=== PATIENT | male | born 1930 | race Caucasian/White ===

== ENCOUNTER 2018-01-18 05:02 | Inpatient (IN) | payer MEDICARE, OTHER ==
[~2018-01-18] VITALS: Ht 170.2 cm; Wt 77.1 kg
[2018-01-18] VITALS (14 sets, daily range): BP systolic 96–173; BP diastolic 49–99
[2018-01-18] MEDS ORDERED: Fleet's Enema 133ml RECTAL ONE (05:15)
--- NOTE | 2018-01-18 05:22 | Emergency Room Report ---
History of Present Illness General Chief Complaint: Constipation Source: Patient, EMS Present Illness HPI Is an 87-year-old male with a history of CAD with CABG. He presents with chief complaint of dizziness and syncope. Onset tonight. [place] lightheaded. Became diaphoretic and had a presyncopal episode. His other main complaint is constipation. He had no significant bowel movement for a week now. He said he tried a glycerin suppository and only had small pellet. Denies any trauma.. Similar symptom in the past. [place] crampy abdominal pain. No bleeding. No nausea no vomiting. No diarrhea. He also complaining of a large prostate which she has to catheterize in order to urinate. Allergies: Coded Allergies: No Known Allergies (Unverified , 01/18/18) Patient History Past Medical History: see triage record, old chart reviewed, HTN, MA, CAD Past Surgical History: CABG Pertinent Family History: other Social History: Denies: smoking Immunizations: other Reviewed Nursing Documentation: PMH: Agreed; PSxH: Agreed Nursing Documentation-PMH Past Medical History: No History, Except For Hx Hypertension: Yes Hx Diabetes: Yes History Of Psychiatric Problem: Yes Review of Systems Constitutional: Reports: weakness Eye: Denies: eye pain, blurred vision ENT: Denies: ear pain, nose congestion, throat swelling Respiratory: Denies: cough, shortness of breath Cardiovascular: Denies: chest pain, palpitations Gastrointestinal: Reports: abdominal pain; Denies: diarrhea, nausea, vomiting Musculoskeletal: Denies: back pain, joint pain Skin: Denies: rash Neurological: Denies: headache, numbness Endocrine: Denies: increased thirst, increased urine Hematologic/Lymphatic: Denies: easy bruising All Other Systems: negative except mentioned in HPI Physical Exam Vital Signs Date Time Temp Pulse Resp B/P (MAP) Pulse Ox O2 Delivery O2 Flow Rate FiO2 01/18/18 05:01 98.7 62 18 156/67 97 Room Air 98.8 vitals with high blood pressure Sp02 EP Interpretation: reviewed, normal General Appearance: no apparent distress, alert, Chronically Ill Head: normocephalic, atraumatic Eyes: bilateral eye PERRL, bilateral eye EOMI, bilateral eye other - pale conjunctiva ENT: hearing grossly normal, normal pharynx Neck: full range of motion, supple, no meningismus Respiratory: chest non-tender, lungs clear, normal breath sounds Cardiovascular #1: regular rate, rhythm, no murmur Gastrointestinal: normal bowel sounds, non tender, no mass, no organomegaly, no bruit, non-distended, other - reducible umbilical hernia Rectal: normal rectal tone, prostate non-tender - enlarged, other - small hard stools Musculoskeletal: back normal, normal range of motion Neurologic: alert, oriented x3 Psychiatric: mood/affect normal Skin: warm/dry Procedures Critical Care Time Critical Care Time Critical care is mandated in this patient who presented with complete heart block. Patient require my urgent intervention to attenuate the risks of metabolic collapse which may lead to cardiovascular collapse and . Critical care time is 35 minutes excluding any reportable procedure. Critical care time included evaluation, multiple reevaluation, looking at old charts, interpreting laboratory and diagnostic data, discussing case with patient and family and consultants, and charting. Medical Decision Making Diagnostic Impression: Primary Impression: Complete heart block Additional Impressions: Syncope Qualified Codes: R55 - Syncope and collapse Constipation Qualified Codes: K59.00 - Constipation, unspecified ER Course Patient presents with syncope and constipation. Initially on my exam heart rate was in the 60s. After rectal exam and enema, it drops in the 20s. Patient felt weak and dizzy but blood pressure is stable. After 2 doses of atropine (total 1 mg), heart rate increase to 83 and blood pressure improved to systolic 160. Patient has more color to his skin. Temporary cutaneous pacemaker attached to patient in case he needed it. His laundry marker supervisor is Dr. Reg Trujillo at [facility]. His asked me to call him for potential transfer. I paged the doctor. No answer from Dr. Trujillo answering service. I discussed case with Dr. Dickey who will admit pt to ICU. He asked Dr. Magdaleno, laundry marker supervisor, to be contacted. I discussed case with Dr. Magdaleno. Lab Results Impression Labs unremarkable. EKG Diagnostic Results Rate: bradycardiac Rhythm: other - sinus bradycardia ST Segments: other - NSST changes Rhythm Strip Diag. Results Rhythm Strip Time: 06:04 EP Interpretation: yes Rate: 82 Rhythm: NSR, no PVC's, no ectopy Chest X-Ray Diagnostic Results Chest X-Ray Diagnostic Results : Chest X-Ray Ordered: Yes # of Views/Limited/Complete: 1 View Indication: Chest Pain EP Interpretation: Yes Interpretation: no consolidation, no effusion, no pneumothorax, other - CM Impression: Other - CM Last Vital Signs Date Time Temp Pulse Resp B/P (MAP) Pulse Ox O2 Delivery O2 Flow Rate FiO2 01/18/18 05:01 98.7 62 18 156/67 97 Room Air 98.8 Status: improved Disposition: ADMITTED INPATIENT Condition: Critical TALON HERNANDEZ M.D. Jan 18, 2018 05:22
[2018-01-18] MEDS ORDERED: Atropine Inj 1mg/10ml Syr IVP ONE ×2 (05:45→06:00)
[2018-01-18 05:51] LABS: BASOPHILS % (AUTO) 1.4 % (0.0-2.0); EOSINOPHILS % (AUTO) 6.6 % (0.0-3.0); HEMATOCRIT 37.4 % (42.0-52.0); HEMOGLOBIN 12.6 G/DL (14.2-18.0); LYMPHOCYTES % (AUTO) 17.8 % (20.0-45.0); MEAN CORPUSCULAR VOLUME 88 FL (80-99); MONOCYTES % (AUTO) 13.7 % (1.0-10.0); NEUTROPHILS % (AUTO) 60.5 % (45.0-75.0); PLATELET COUNT 127 K/UL (150-450); RED BLOOD COUNT 4.26 M/UL (4.70-6.10); RED CELL DISTRIBUTION WIDTH 12.2 % (11.6-14.8); WHITE BLOOD COUNT 7.1 K/UL (4.8-10.8)
[2018-01-18] MEDS ORDERED: Atropine Inj 1mg/10ml Syr ONE (05:55)
[2018-01-18 06:06] LABS: ALANINE AMINOTRANSFERASE 21 U/L (12-78); ALBUMIN 3.5 G/DL (3.4-5.0); ALBUMIN/GLOBULIN RATIO 0.9 (1.0-2.7); ALKALINE PHOSPHATASE 43 U/L (46-116); ANION GAP 12 mmol/L (5-15); ASPARTATE AMINO TRANSFERASE 22 U/L (15-37); BILIRUBIN,TOTAL 0.9 MG/DL (0.2-1.0); CARBON DIOXIDE 22 MMOL/L (21-32); CHLORIDE 104 MMOL/L (98-107); CKMB 1.4 NG/ML (0.0-3.6); CREATINE KINASE 93 U/L (26-308); CREATININE 1.4 MG/DL (0.55-1.30); POTASSIUM 4.3 MMOL/L (3.5-5.1); SODIUM 138 MMOL/L (136-145)
[2018-01-18 06:20] LABS: BLOOD UREA NITROGEN 28 mg/dL (7-18)
[2018-01-18] MEDS ORDERED: Aspirin Baby 81mg ONE (06:20)
[2018-01-18] MEDS ORDERED: PRAVASTATIN SOD20 M1 ORAL (06:27)
[2018-01-18] MEDS ORDERED: ELIQUIS2.5 MG PO ×2 (06:27→08:19)
[2018-01-18] MEDS ORDERED: ASPIR 8181 MG ORAL (06:27)
[2018-01-18] MEDS ORDERED: LOSARTAN POTASS25 MG ORAL (06:27)
[2018-01-18] MEDS ORDERED: CARVEDILOL3.125 MG ORAL (06:30)
[2018-01-18] MEDS ORDERED: Aspirin Baby 81mg ORAL ONE (06:30)
[2018-01-18] MEDS ORDERED: ISOSORBIDE MONO10 MG PO (06:30)
[2018-01-18] MEDS ORDERED: Morphine Sulfate 2mg/ml Inj IVP PRN ×2 (06:45→15:45)
[2018-01-18] MEDS ORDERED: LORazepam Inj 2mg/ml 1ml IV PRN (06:45)
[2018-01-18] MEDS ORDERED: DOPamine 400mg/250ml 250 ML IV SCH (07:00)
[2018-01-18] MEDS ORDERED: D5 1/2NS 1,000 ML IV SCH ×2 (07:00→12:00)
[2018-01-18 07:18] LABS: BILIRUBIN, URINE NEGATIVE (NEGATIVE); COLOR,URINE PALE YELLOW; GLUCOSE, URINE (UA) NEGATIVE (NEGATIVE); KETONES,URINE NEGATIVE (NEGATIVE); LEUKOCYTE ESTERASE ,URINE 1+ (NEGATIVE); NITRITE,URINE NEGATIVE (NEGATIVE); PH,URINE 7 (4.5-8.0); PROTEIN,URINE 2+ (NEGATIVE); UROBILINOGEN,URINE NORMAL MG/DL (0.0-1.0)
[2018-01-18 07:25] LABS: APPEARANCE,URINE SLIGHTLY CLOUDY
[2018-01-18] MEDS ORDERED: ISOSORBIDE MONO20 MG PO (08:19)
[2018-01-18] MEDS ORDERED: PRAVACHOL40 MG ORAL (08:19)
[2018-01-18] MEDS ORDERED: LOSARTAN POTAS100 MG ORAL (08:19)
[2018-01-18] MEDS ORDERED: COREG12.5 MG ORAL (08:19)
[2018-01-18] MEDS ORDERED: Heparin 5000 units/ml inj SUBQ SCH (09:00)
--- NOTE | 2018-01-18 09:33 | Pulmonolgy Critical Care Note ---
Critical Care - Asmt/Plan Problems: (1) Complete heart block (2) Constipation (3) CAD (coronary artery disease) (4) Diabetes mellitus (5) Hypertension Respiratory: monitor respiratory rate, adjust FIO2 Cardiac: continue to monitor HR/BP Renal: F/U I&O Gastrointestinal: continue feedings/current rate Endocrine: monitor blood sugar, continue sliding scale insulin Hematologic: monitor H/H Neurologic: PRN Ativan Affect: PRN ativan Time Spent (Minutes): 40 Notes Reviewed: front of house manager, cardio Discussed with: nurses, consultants, classification case managercage shift manager - Objective Last 24 Hour Vital Signs Date Time Temp Pulse Resp B/P (MAP) Pulse Ox O2 Delivery O2 Flow Rate FiO2 01/18/18 07:34 98.8 72 18 173/62 96 Room Air 98.8 01/18/18 05:59 85 162/76 100 Room Air 01/18/18 05:01 98.7 62 18 156/67 97 Room Air 98.8 Status: awake Condition: critical HEENT: atraumatic Lungs: clear Heart: HR/BP unstable, irregular Abdomen: soft, non-tender Extremities: no C/C/E Decubiti: location Critical Care - Subjective Condition: critical EKG Rhythm: 3rd Degree HB I&O: Intake and Output 01/17/18 01/18/18 19:00 07:00 Output Total 200 ml Balance -200 ml Output Urine Total 200 ml Labs: Laboratory Tests Test 01/18/18 05:20 01/18/18 06:14 White Blood Count 7.1 K/UL (4.8-10.8) Red Blood Count 4.26 M/UL (4.70-6.10) L Hemoglobin 12.6 G/DL (14.2-18.0) L Hematocrit 37.4 % (42.0-52.0) L Mean Corpuscular Volume 88 FL (80-99) Mean Corpuscular Hemoglobin 29.5 PG (27.0-31.0) Mean Corpuscular Hemoglobin Concent 33.7 G/DL (32.0-36.0) Red Cell Distribution Width 12.2 % (11.6-14.8) Platelet Count 127 K/UL (150-450) L Mean Platelet Volume 10.0 FL (6.5-10.1) Neutrophils (%) (Auto) 60.5 % (45.0-75.0) Lymphocytes (%) (Auto) 17.8 % (20.0-45.0) L Monocytes (%) (Auto) 13.7 % (1.0-10.0) H Eosinophils (%) (Auto) 6.6 % (0.0-3.0) H Basophils (%) (Auto) 1.4 % (0.0-2.0) Sodium Level 138 MMOL/L (136-145) Potassium Level 4.3 MMOL/L (3.5-5.1) Chloride Level 104 MMOL/L (98-107) Carbon Dioxide Level 22 MMOL/L (21-32) Anion Gap 12 mmol/L (5-15) Blood Urea Nitrogen 28 mg/dL (7-18) H Creatinine 1.4 MG/DL (0.55-1.30) H Estimat Glomerular Filtration Rate mL/min (>60) Glucose Level 132 MG/DL (74-106) H Calcium Level 9.0 MG/DL (8.5-10.1) Total Bilirubin 0.9 MG/DL (0.2-1.0) Aspartate Amino Transf (AST/SGOT) 22 U/L (15-37) Alanine Aminotransferase (ALT/SGPT) 21 U/L (12-78) Alkaline Phosphatase 43 U/L (46-116) L Total Creatine Kinase 93 U/L (26-308) Creatine Kinase MB 1.4 NG/ML (0.0-3.6) Creatine Kinase MB Relative Index 1.5 Troponin I 0.027 ng/mL (0.000-0.056) Total Protein 7.5 G/DL (6.4-8.2) Albumin 3.5 G/DL (3.4-5.0) Globulin 4.0 g/dL Albumin/Globulin Ratio 0.9 (1.0-2.7) L Urine Color Pale yellow Urine Appearance Slightly cloudy Urine pH 7 (4.5-8.0) Urine Specific [place] 1.005 (1.005-1.035) Urine Protein 2+ (NEGATIVE) H Urine Glucose (UA) Negative (NEGATIVE) Urine Ketones Negative (NEGATIVE) Urine Blood Negative (NEGATIVE) Urine Nitrite Negative (NEGATIVE) Urine Bilirubin Negative (NEGATIVE) Urine Urobilinogen Normal MG/DL (0.0-1.0) Urine Leukocyte Esterase 1+ (NEGATIVE) H Urine RBC 0-2 /HPF (0 - 0) H Urine WBC 5-10 /HPF (0 - 0) H Urine Squamous Epithelial Cells Few /LPF (NONE/OCC) Urine Bacteria Few /HPF (NONE) Urine Hyaline Casts 0-2 /LPF (NONE) H Sami Avila MD Jan 18, 2018 09:33
--- NOTE | 2018-01-18 11:26 | Pre-Procedure Note/Attestation ---
Pre-Procedure Note/Attestation Complete Prior to Procedure Planned Procedure: left Procedure Narrative: permanent dual chamber pacemaker Indications for Procedure Pre-Operative Diagnosis: intermittent complete av block Attestation I attest that I discussed the nature of the procedure; its benefits; risks and complications; and alternatives (and the risks and benefits of such alternatives ), prior to the procedure, with the patient (or the patient's legal customer development representative). I attest that, if there was a reasonable possibility of needing a blood transfusion, the patient (or the patient's legal customer development representative) was given the [facility] standardized written summary, pursuant to the Dany Naveen Blood Safety Act ([place] Health and Safety Code # 1645, as amended). I attest that I re-evaluated the patient just prior to the surgery and that there has been no change in the patient's H&P, except as documented below: none Maira Aguero MD Jan 18, 2018 11:26
[2018-01-18] MEDS ORDERED: LR 1000ml 1,000 ML IVLG SCH (11:31)
--- NOTE | 2018-01-18 11:31 | Anethesia Preoperative Eval ---
Anesthesia Pre-op PMH/ROS General Date of Evaluation: Jan 18, 2018 Anesthesiologist: Henri ASA Score: ASA 4 - E Mallampati Score Class I : Soft palate, uvula, fauces, pillars visible Class II: Soft palate, uvula, fauces visible Class III: Soft palate, base of uvula visible Class IV: Only hard plate visible Mallampati Classification: Class II Surgeon: Judit Diagnosis: Complete heart block Surgical Procedure: Pacemaker placement Anesthesia History: none Family History: no anesthesia problems Allergies: Coded Allergies: No Known Allergies (Unverified , 01/18/18) Medications: see eMAR Past Medical History Cardiovascular: Reports: HTN, CAD, [place]; Denies: valve dz, arrhythmia, other Pulmonary: Denies: asthma, COPD, KAT, other Gastrointestinal/Genitourinary: Denies: GERD, CRI, ESRD, other Neurologic/Psychiatric: Denies: dementia, CVA, depression/anxiety, TIA, other Endocrine: Reports: DM; Denies: hypothyroidism, steroids, other HEENT: Denies: cataract (L), cataract (R), glaucoma, [place] (L), [place] (R), other Hematology/Immune: Denies: anemia, DVT, bleeding disorder, other Musculoskeletal/Integumentary: Denies: OA, RA, DJD, DDD, edema, other PSxH Narrative: CABG Anesthesia Pre-op Phys. Exam Physician Exam Last Vital Signs Date Time Temp Pulse Resp B/P (MAP) Pulse Ox O2 Delivery O2 Flow Rate FiO2 01/18/18 11:00 Nasal Cannula 2.0 01/18/18 10:26 97.6 61 19 163/62 100 97.6 Constitutional: NAD Cardiovascular: RRR Respiratory: CTA Airway Exam Mallampati Score: Class II MO: limited ROM: limited Anesthesia Pre-op A/P Labs Hematology Test 01/18/18 05:20 White Blood Count 7.1 K/UL (4.8-10.8) Red Blood Count 4.26 M/UL (4.70-6.10) L Hemoglobin 12.6 G/DL (14.2-18.0) L Hematocrit 37.4 % (42.0-52.0) L Mean Corpuscular Volume 88 FL (80-99) Mean Corpuscular Hemoglobin 29.5 PG (27.0-31.0) Mean Corpuscular Hemoglobin Concent 33.7 G/DL (32.0-36.0) Red Cell Distribution Width 12.2 % (11.6-14.8) Platelet Count 127 K/UL (150-450) L Mean Platelet Volume 10.0 FL (6.5-10.1) Neutrophils (%) (Auto) 60.5 % (45.0-75.0) Lymphocytes (%) (Auto) 17.8 % (20.0-45.0) L Monocytes (%) (Auto) 13.7 % (1.0-10.0) H Eosinophils (%) (Auto) 6.6 % (0.0-3.0) H Basophils (%) (Auto) 1.4 % (0.0-2.0) Chemistry Test 01/18/18 05:20 Sodium Level 138 MMOL/L (136-145) Potassium Level 4.3 MMOL/L (3.5-5.1) Chloride Level 104 MMOL/L (98-107) Carbon Dioxide Level 22 MMOL/L (21-32) Anion Gap 12 mmol/L (5-15) Blood Urea Nitrogen 28 mg/dL (7-18) H Creatinine 1.4 MG/DL (0.55-1.30) H Estimat Glomerular Filtration Rate mL/min (>60) Glucose Level 132 MG/DL (74-106) H Calcium Level 9.0 MG/DL (8.5-10.1) Total Bilirubin 0.9 MG/DL (0.2-1.0) Aspartate Amino Transf (AST/SGOT) 22 U/L (15-37) Alanine Aminotransferase (ALT/SGPT) 21 U/L (12-78) Alkaline Phosphatase 43 U/L (46-116) L Total Creatine Kinase 93 U/L (26-308) Creatine Kinase MB 1.4 NG/ML (0.0-3.6) Creatine Kinase MB Relative Index 1.5 Troponin I 0.027 ng/mL (0.000-0.056) Total Protein 7.5 G/DL (6.4-8.2) Albumin 3.5 G/DL (3.4-5.0) Globulin 4.0 g/dL Albumin/Globulin Ratio 0.9 (1.0-2.7) L Studies Pre-op Studies: EKG - complete heart block Risk Assessment & Plan Assessment: ASA DANIELLA Plan: MAC Status Change Before Surgery: No Pre-Antibiotics Drug: Ancef 1g Given Within 1 Hr of Incision: Yes Evelia Lanier MD Jan 18, 2018 11:31
[2018-01-18] MEDS ORDERED: Bupivacaine 0.5% Inj 30 ml vial INJ ONE (11:33)
[2018-01-18] MEDS ORDERED: Bacitracin 50000 Units Vial ONE (11:33)
[2018-01-18] MEDS ORDERED: Lidocaine 1% Plain 30 ml INJ ONE (11:33)
--- NOTE | 2018-01-18 11:36 | Consultation ---
Consult Note Consult Note Cardiac EP full consult dictated #[id number] Maira Aguero MD Jan 18, 2018 11:36
[2018-01-18] MEDS ORDERED: Propofol 200mg/20ml IV ONE (11:40)
[2018-01-18] MEDS ORDERED: fentaNYL 100 mcg/2 mL IV ONE (11:40)
[2018-01-18] MEDS ORDERED: Lidocaine 1% MPF 10mg/ml 5ml ONE (11:40)
[2018-01-18] MEDS ORDERED: DiphenhydrAMINE 50mg/ml Inj IVP PRN (11:45)
[2018-01-18] MEDS ORDERED: Labetalol 5mg/ml 20ml vial IV PRN (11:45)
[2018-01-18] MEDS ORDERED: fentaNYL 100 mcg/2 mL IV PRN (11:45)
[2018-01-18] MEDS ORDERED: NS Irrig 1000ml ONE (12:00)
[2018-01-18] MEDS ORDERED: ceFAZolin sod 2 GM in D5W 110 ML IVPB SCH (12:00)
[2018-01-18] MEDS ORDERED: LR 1000ml ONE (12:00)
[2018-01-18] MEDS ORDERED: Sterile Water Irrig 1000ml IRRIG ONE (12:00)
--- NOTE | 2018-01-18 12:04 | Diagnostic Imaging Report ---
Indication: Syncope Technique: One view of the chest Comparison: 05/16/2010 Findings: The heart is mildly enlarged. There are overlying defibrillator paddles. There is mild pulmonary venous congestion. No definite effusions. There is evidence of prior CABG Impression: Mild cardiomegaly and borderline pulmonary venous congestion
[2018-01-18 12:05] LABS: INR 1.1 (0.9-1.1)
[2018-01-18] MEDS ORDERED: Thrombin 5000 units spray kit TOPIC ONE (13:28)
--- NOTE | 2018-01-18 13:56 | Pre-Procedure Note/Attestation ---
Pre-Procedure Note/Attestation Complete Prior to Procedure Planned Procedure: left Procedure Narrative: pacemaker implant Indications for Procedure Pre-Operative Diagnosis: intermittent complete av block Attestation I attest that I discussed the nature of the procedure; its benefits; risks and complications; and alternatives (and the risks and benefits of such alternatives ), prior to the procedure, with the patient (or the patient's legal solar sales representative and assessor). I attest that, if there was a reasonable possibility of needing a blood transfusion, the patient (or the patient's legal solar sales representative and assessor) was given the [facility] standardized written summary, pursuant to the Dany Naveen Blood Safety Act ([place] Health and Safety Code # 1645, as amended). I attest that I re-evaluated the patient just prior to the surgery and that there has been no change in the patient's H&P, except as documented below: Maira Aguero MD Jan 18, 2018 13:56
[2018-01-18] MEDS ORDERED: ceFAZolin 1gm/50ml Premix 50 ML IV ONE (14:00)
--- NOTE | 2018-01-18 14:02 | Operative Note - PDOC ---
Operative Note Operative Note Pre-op Diagnosis: intermittent complete av block Procedure: permanent pacemaker implant Post-op Diagnosis: intermittent complete av block Post-op Diagnosis: same as pre-op Surgeon: Reynaldo Aguero Apartment Leasing Specialist: none Additional Surgeons: none Anesthesiologist: Henri Anesthesia: local, MAC Specimen: none Complications: none Condition: stable Estimated Blood Loss: minimal Drains: none Implant(s) used?: Yes Indications for Procedure intermittent chb Description of Procedure # [id number] dictation Maira Aguero MD Jan 18, 2018 14:02
--- NOTE | 2018-01-18 15:30 | Consultation ---
DATE OF CONSULTATION: 01/18/2018 CARDIAC ELECTROPHYSIOLOGY CONSULT CONSULTING PHYSICIAN: Maira Aguero M.D. REASON FOR CONSULT: Syncope. HISTORY OF PRESENT ILLNESS: The patient is an 87-year-old man with a history of coronary artery disease, previous coronary artery bypass graft surgery, four-vessel in 1978 and 1993, previous PCI procedures most recently in 2016, and history of catheter ablation (records not available) in 2016, and history of hypertension. He has had intermittent episodes of dizziness and syncope over the past few months. This morning at about 3 a.m., he awoke with dizziness and diaphoresis. He had no chest pain or dyspnea. The symptoms persisted. He attempted to stand and walk, but had loss of balance, dizziness, and presyncope as well as nausea. The paramedics were called and he was transferred to [facility] emergency room. There, he was noted to have a heart rate in the 30s, complete heart block, blood pressure was reported at 150/60 and he was transferred to [facility] emergency room. There, he was initially in sinus rhythm with rates in the 60s. However while hospitalized, in the emergency room, his heart rate dropped to the 20s, complete heart block. He had weakness and dizziness. Blood pressure was reported to be stable. He received two doses of 1 mg each of atropine. Heart rate increased to 83. Blood pressure increased to 160 systolic. The temporary transcutaneous pacemaker was placed and he was admitted to the intensive care unit for further management. His initial troponin was 0.027, potassium 4.3. MEDICATIONS: At home, Eliquis 2.5 mg twice daily, aspirin 81 mg daily, Coreg 12.5 mg every 12 hours, Imdur mg daily, losartan 100 mg daily, and Pravachol 40 mg daily. ALLERGIES: No known drug allergies. PAST MEDICAL HISTORY: As noted above. SOCIAL HISTORY: The patient has no history of tobacco or alcohol use. PHYSICAL EXAMINATION: VITAL SIGNS: Blood pressure is 163/62, pulse 61, regular, respirations 20, and afebrile. GENERAL: An alert, elderly appearing white male, in no acute distress. HEENT: Normocephalic and atraumatic. Pupils are equal, round, and reactive to light. Sclerae anicteric. Oral mucosa are moist. NECK: Supple. There is no jugular venous distention. Carotid pulses are 2+ bilaterally without bruits. LUNGS: Clear to auscultation bilaterally. HEART: Regular, S1 and S2 with no murmurs, rubs, or S3. ABDOMEN: Soft, nontender. No palpable mass. Small reducible umbilical hernia. NEUROLOGIC: Alert and oriented x3. No focal motor deficits. SKIN: Warm, dry. No rashes or lesions. LABORATORY AND DIAGNOSTIC DATA: Sodium 138, potassium 4.3, chloride 104, bicarbonate 22, BUN 28, creatinine 1.4, and glucose 132. Troponin 0.027. Hemoglobin 12.6, hematocrit 37, white blood count 7100, and platelets 127,000. Urinalysis, 2+ protein, 1+ leukocyte esterase, 5 to 10 white blood cells, 0 to 2 red blood cells. EKG on admission showed sinus rhythm at a rate of 60 beats per minute with complete AV block, right bundle-branch block. Repeat EKG after atropine shows sinus rhythm, 84 beats per minute, first-degree AV block, and left bundle-branch block and right axis deviation. ASSESSMENT AND RECOMMENDATIONS: The patient is an 87-year-old man with a history of coronary artery disease, previous coronary artery bypass graft surgery, PCI procedures, previous ablation (question for atrial tachyarrhythmia) in 2016, history of thrombocytopenia, and episodes of dizziness, syncope, and presyncope, who was admitted with an episode of dizziness, nausea, and near syncope. In the emergency room, he was initially in sinus rhythm, but developed complete AV block with a heart rate of 24 beats per minute, which has resolved following atropine. He appears to have bilateral infranodal conduction disease with alternating right bundle and left bundle branch blocks noted on EKGs. However, he also appears with AV agueda conduction disease as his rhythm responded to atropine. I would agree with the recommendation for permanent pacemaker placement for treatment of symptomatic high-grade AV block. The procedure was discussed with him and his family. Risks and benefits were discussed. He understands and agrees to proceed. His anticoagulants will be held for the procedure, type and screen will be done and he will receive preoperative intravenous antibiotics. The patient's case was discussed with his primary automatic riveting machine operator , who agrees with the recommendation for permanent pacemaker placement. Maira Aguero M.D. DR: RENETTA JOB#: [id number] CC:
[2018-01-18] MEDS: Docusate 100mg cap ORAL SCH ×2 (15:34→17:41)
[2018-01-18] MEDS: Lactulose 20gm/30ml UDC ORAL SCH ×2 (15:34→17:42)
[2018-01-18] MEDS ORDERED: Acetaminophen 500mg (ES) tab ORAL PRN (16:00)
[2018-01-18] MEDS ORDERED: Tylenol #3 tab (300mg/30mg) ORAL PRN (16:00)
--- NOTE | 2018-01-18 16:35 | Cardiology Progress Note ---
Assessment/Plan Assessment/Plan heart block now s/p ppi intermittent rbbb and lbbb paf on nticoagualtion with eliquis atrial flutter s/p ablation hsi of icmseem to hve resolved most recetn mpi ef 50-55% cri ITP cad s/p cabg and pci lat 2016 now s/p ppi hold eliquis not in afib now observe ove rthe next 24-48 hour helplock ivf resume diet observe in icu for a few hours [id number] Objective Last 24 Hour Vital Signs Date Time Temp Pulse Resp B/P (MAP) Pulse Ox O2 Delivery O2 Flow Rate FiO2 01/18/18 15:20 57 01/18/18 15:00 61 18 148/49 (82) 97 01/18/18 14:00 97.8 61 16 139/69 (92) 98 97.8 01/18/18 12:00 Nasal Cannula 2.0 01/18/18 12:00 97.8 60 16 153/99 (117) 100 97.8 01/18/18 11:00 Nasal Cannula 2.0 01/18/18 11:00 153/99 01/18/18 10:26 97.6 61 19 163/62 100 Nasal Cannula 2.0 97.6 01/18/18 09:53 97.6 61 19 163/62 100 Nasal Cannula 2.0 97.6 01/18/18 07:34 98.8 72 18 173/62 96 Room Air 98.8 01/18/18 05:59 85 162/76 100 Room Air 01/18/18 05:01 98.7 62 18 156/67 97 Room Air 98.8 Intake and Output 01/17/18 01/18/18 19:00 07:00 Output Total 200 ml Balance -200 ml Output Urine Total 200 ml Laboratory Tests Test 01/18/18 05:20 01/18/18 06:14 01/18/18 11:40 White Blood Count 7.1 K/UL (4.8-10.8) Red Blood Count 4.26 M/UL (4.70-6.10) L Hemoglobin 12.6 G/DL (14.2-18.0) L Hematocrit 37.4 % (42.0-52.0) L Mean Corpuscular Volume 88 FL (80-99) Mean Corpuscular Hemoglobin 29.5 PG (27.0-31.0) Mean Corpuscular Hemoglobin Concent 33.7 G/DL (32.0-36.0) Red Cell Distribution Width 12.2 % (11.6-14.8) Platelet Count 127 K/UL (150-450) L Mean Platelet Volume 10.0 FL (6.5-10.1) Neutrophils (%) (Auto) 60.5 % (45.0-75.0) Lymphocytes (%) (Auto) 17.8 % (20.0-45.0) L Monocytes (%) (Auto) 13.7 % (1.0-10.0) H Eosinophils (%) (Auto) 6.6 % (0.0-3.0) H Basophils (%) (Auto) 1.4 % (0.0-2.0) Sodium Level 138 MMOL/L (136-145) Potassium Level 4.3 MMOL/L (3.5-5.1) Chloride Level 104 MMOL/L (98-107) Carbon Dioxide Level 22 MMOL/L (21-32) Anion Gap 12 mmol/L (5-15) Blood Urea Nitrogen 28 mg/dL (7-18) H Creatinine 1.4 MG/DL (0.55-1.30) H Estimat Glomerular Filtration Rate mL/min (>60) Glucose Level 132 MG/DL (74-106) H Calcium Level 9.0 MG/DL (8.5-10.1) Total Bilirubin 0.9 MG/DL (0.2-1.0) Aspartate Amino Transf (AST/SGOT) 22 U/L (15-37) Alanine Aminotransferase (ALT/SGPT) 21 U/L (12-78) Alkaline Phosphatase 43 U/L (46-116) L Total Creatine Kinase 93 U/L (26-308) Creatine Kinase MB 1.4 NG/ML (0.0-3.6) Creatine Kinase MB Relative Index 1.5 Troponin I 0.027 ng/mL (0.000-0.056) 0.050 ng/mL (0.000-0.056) Total Protein 7.5 G/DL (6.4-8.2) Albumin 3.5 G/DL (3.4-5.0) Globulin 4.0 g/dL Albumin/Globulin Ratio 0.9 (1.0-2.7) L Urine Color Pale yellow Urine Appearance Slightly cloudy Urine pH 7 (4.5-8.0) Urine Specific [place] 1.005 (1.005-1.035) Urine Protein 2+ (NEGATIVE) H Urine Glucose (UA) Negative (NEGATIVE) Urine Ketones Negative (NEGATIVE) Urine Blood Negative (NEGATIVE) Urine Nitrite Negative (NEGATIVE) Urine Bilirubin Negative (NEGATIVE) Urine Urobilinogen Normal MG/DL (0.0-1.0) Urine Leukocyte Esterase 1+ (NEGATIVE) H Urine RBC 0-2 /HPF (0 - 0) H Urine WBC 5-10 /HPF (0 - 0) H Urine Squamous Epithelial Cells Few /LPF (NONE/OCC) Urine Bacteria Few /HPF (NONE) Urine Hyaline Casts 0-2 /LPF (NONE) H Prothrombin Time 11.4 SEC (9.30-11.50) Prothromb Time International Ratio 1.1 (0.9-1.1) Activated Partial Thromboplast Time 33 SEC (23-33) Santiago Magdaleno MD Jan 18, 2018 16:35
[2018-01-18] MEDS ORDERED: ceFAZolin 1gm in D5W 55ml IVPB SCH (19:30)
--- NOTE | 2018-01-18 19:35 | History & Physical ---
History and Physical History & Physicial Dictated for Int Med-Dr Lim no. [id number]. ICU Domingo Reveles MD Jan 18, 2018 19:35
--- NOTE | 2018-01-18 20:15 | Operative Note - Dictated ---
DATE OF OPERATION: 01/18/2018 SURGEON: Maira Aguero M.D. PROCEDURE PERFORMED: Permanent dual-chamber pacemaker. INDICATION: Intermittent complete heart block. CLINICAL HISTORY: The patient is an 87-year-old man with a history of coronary artery disease, recurrent episodes of dizziness who presented with symptomatic intermittent complete heart block with ventricular rates in the 20s. The implanted device is a [employer], [place] MRI DR, serial number [id number] the implanted leads in the atrium is [employer] 7740, serial number [id number], and right ventricle was a [employer] 7741, serial number [id number]. Pacing and sensing thresholds in the right atrium, sensing is 2.6 millivolts, right ventricle 22.3 millivolts. Lead impedances are 562 ohms in the right atrium 815 ohms in the right ventricle pacing threshold 1.1 volts at 0.4 milliseconds. The right atrium 0.6 volts at 0.4 milliseconds in the right ventricle. ANESTHESIA: Local and intravenous sedation. DESCRIPTION OF PROCEDURE: The patient was brought to the operating room, received sedation as per the anesthesiologist, Dr. Álvarez. The left chest was sterilely prepped and draped in the usual manner. The skin and underlying soft tissues over the left deltopectoral groove were infiltrated with 1% Xylocaine local anesthetic. An incision of about 3 cm was made in the left deltopectoral groove and the incision was carried down to the prepectoral fascia using blunt and Bovie dissection. The left cephalic vein was isolated. A proximal loop and distal tie of silk suture were placed. The vein was then incised. Two guidewires advanced under fluoroscopy into the lower right atrium. Over one of the guidewires, a 6-Togolese safe sheath was advanced. The guidewire and dilator were removed and the ventricular lead was positioned in right ventricular apex under fluoroscopy. The screw was advanced under fluoroscopy. The above pacing and sensing thresholds were obtained. There was no diaphragmatic stimulation with pacing at 10 volts. The lead was secured with two nonabsorbable sutures via the suture sleeve. Next, the atrial lead was positioned in the right atrium septally. The screw was advanced under fluoroscopy and the above pacing and sensing thresholds were obtained. There was no diaphragmatic stimulation with pacing at 10 volts. The lead was secured with two nonabsorbable sutures via the suture sleeve. A subcutaneous pocket was created using blunt and Bovie dissection. The pocket was flushed with an antibiotic solution. The stylettes were removed from the leads after the leads had both been secured with two nonabsorbable sutures via the suture sleeve to the underlying fascia. The atrial and ventricular leads were attached to the generator. The setscrews were tightened and checked. The leads and generator were placed into the subcutaneous pocket with the excess lead coiled beneath the generator. The pocket was flushed with antibiotic solution. The generator was secured with an 0 silk suture to the underlying fascia. The incision was then closed with 2-0 and 4-0 Monocryl absorbable suture. A sterile dressing was applied. The patient tolerated the procedure well and there were no intraprocedural complications. Maira Aguero M.D. DR: Paula JOB#: [id number] CC:
[2018-01-18] MEDS ORDERED: Miralax 17gm pkt ORAL SCH (21:00)
--- NOTE | 2018-01-18 23:00 | History and Physical Report ---
DATE OF ADMISSION: 01/18/2018 CHIEF COMPLAINT: The patient is an 87-year-old white male who presents with complaint of syncopal episode. HISTORY OF PRESENT ILLNESS: The patient has a history of coronary artery disease. The patient has an approximate 5 year history of syncopal episode. The patient has been evaluated as an outpatient by Neurology, at [facility]. The patient states he went to bed this morning around 2 a.m. The patient then was trying to get out of bed. The patient states he fainted. The patient awoke and was confused with diaphoresis. The patient states he felt rushing noise in his head prior to passing out. The patient presented to [place] emergency room. The patient was found to have a complete AV block. The patient is admitted for complete AV block and syncopal episode. REVIEW OF SYSTEMS: CONSTITUTIONAL: The patient denies weight loss or weight gain. The patient denies fevers or chills. HEENT: The patient denies ear or throat pain. The patient denies headache. CARDIOVASCULAR: The patient has coronary artery disease as above. The patient denies palpitations or chest pain. CHEST: The patient denies wheezes or shortness of breath. ABDOMEN: The patient denies nausea, vomiting, diarrhea, or constipation. GENITOURINARY: The patient denies dysuria or increased frequency of urination. NEUROMUSCULAR: The patient complains of syncopal episode as above. The patient denies seizures. PAST MEDICAL HISTORY: Significant for: 1. Hypertension. 2. Coronary artery disease status post myocardial infarction x2. 3. Benign prostatic hypertrophy. PAST SURGICAL HISTORY: Significant for: 1. Coronary artery bypass graft x2, #1 in 1978 and second in 1993. 2. Coronary angioplasty twice with three stents placed, the first time two stents placed and second time, last percutaneous transluminal coronary angioplasty was in 2016. 3. Ablation in 2016. CURRENT MEDICATIONS: 1. Apixaban 2.5 mg p.o. twice daily. 2. Aspirin 81 mg p.o. daily. 3. Coreg 12.5 mg p.o. twice daily. 4. Isosorbide mononitrate 20 mg p.o. daily. 5. Losartan 100 mg p.o. daily. 6. Pravastatin 40 mg p.o. at bedtime. ALLERGIES: No known drug allergies. SOCIAL HISTORY: The patient is . The patient denies tobacco use, having quit in 1970. The patient admits to rare alcohol use. PHYSICAL EXAMINATION: VITAL SIGNS: Temperature 97.8, respirations 16, pulse 61, blood pressure 139/69. GENERAL: The patient is well-developed and well-nourished white male, in no apparent distress. HEENT: Eyes, pupils are equal and responsive to light and accommodation. Extraocular movements are intact. NECK: Supple without lymphadenopathy. CHEST: Lungs are clear to auscultation bilaterally without wheezes or rales. CARDIOVASCULAR: Regular rate. S1 and S2 are normal without murmurs, rubs, or gallops. ABDOMEN: Soft, nontender, and nondistended. Positive bowel sounds. No evidence of hepatosplenomegaly. Currently, no rebound or guarding noted. EXTREMITIES: Negative for clubbing, cyanosis, or edema. RECTAL/GENITAL: Refused. NEUROLOGIC: Cranial nerves II to XII are grossly intact without focal deficits. Motor strength is 5/5 bilaterally. Deep tendon reflexes are 2+ plantar. LABORATORY STUDIES: WBC 7.1, hemoglobin 12.6, hematocrit 37.4, platelets 127,000. Sodium 138, potassium 4.3, chloride 104, CO2 22, BUN 28, creatinine 1.4, glucose 132. Troponin elevated at 0.027. EKG demonstrated complete AV block at 85 beats per minute. ASSESSMENT: This is an 87-year-old white male. 1. Syncopal episode. 2. Complete AV block. 3. Coronary artery disease. 4. Hypertension. 5. Benign prostatic hypertrophy. 6. Hypercholesteremia. TREATMENT: 1. Syncopal episode/complete AV block. A Cardiology consultation has been obtained with Dr. Maira Aguero. The patient will require emergent pacemaker implantation for complete AV block. 2. Coronary artery disease. As above, a Cardiology consultation obtained with Dr. Donna. Aguero. 3. Hypertension. Continue Coreg and losartan as above. 4. Benign prostatic hypertrophy. 5. Hypercholesteremia. Continue pravastatin as above. Domingo Reveles M.D. DR: Noel JOB#: [id number] CC:
--- NOTE | 2018-01-18 23:00 | Consultation ---
DATE OF CONSULTATION: 01/18/2018 CARDIOLOGY CONSULTATION CONSULTING PHYSICIAN: Santiago Magdaleno M.D. REFERRING PHYSICIAN: Alex Dickey M.D. REASON FOR REFERRAL: Heart block. HISTORY OF PRESENT ILLNESS: This is an elderly gentleman, who presented to the hospital because of an episode of passing out. Apparently, he has been having several episodes of syncopal episodes for which workup has been initiated over the past few months by Dr. 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 Nevertheless, extensive workup has been performed. Apparently he did have tilt-table testing and either case in the middle of the night, he had those typical episodes, he woke up somewhat nauseated and felt as if he was going to pass out, apparently he passed out. When he woke up, he was drenched in perspiration he says and he has felt palpitations and the symptoms persisted, so eventually he had his call the paramedics. The paramedics brought him to the emergency room. Initially in the emergency room, he was noted to be in sinus rhythm and doing well. He went to the bathroom and he came back and apparently had an episode of a heart block. Actually, he was administered by the emergency room physician with resolution of the bradycardia and the patient was maintained. I was notified by the emergency room physician at that time and because of his history, I felt that he will likely require permanent pacemaker and arrangements made for Dr. Aguero to get involved for evaluation and placement of permanent pacemaker. This was subsequently accomplished later in the morning or early afternoon. He is now being seen in intensive care unit, feeling fine. He does not really have any chest pain, although he has had coronary artery disease and coronary bypass grafting on several occasions. He does have exertional angina and describes the pain when he does take out the garbage, but occurs apparently not frequently and certainly less frequently than it used to before. He has had two separate bypass surgeries in the 70s and again 90s and he underwent stent placement previously. PAST HISTORY: Notable for coronary artery disease, stented arteries, had elevation of PSA, cataracts status post right eye and cat bite, exertional angina, sepsis, paroxysmal episodes of atrial fibrillation, history of acute kidney disease, hyponatremia, congestive heart failure, chronic ITP and history of non-ST elevation myocardial infarction, acute on chronic heart failure, history of atrial fibrillation with rapid ventricular response and flutter as well as chronic kidney disease stage 3. He has had bypass surgeries on two separate occasions, stent placement and cataract surgery. ALLERGIES: He is not allergic to any medications. SOCIAL HISTORY: He does not smoke. He drinks only on rare occasions. He used to be in [employer]. He lives at home. REVIEW OF SYSTEMS: GASTROINTESTINAL: He did have some nausea earlier today. No vomiting and he is constipated. No black or bloody stools. GENITOURINARY: He self caths because of chronic intermittent obstructive uropathy. PULMONARY: Occasional cough. CONSTITUTIONAL: Negative. NEUROLOGICAL: Relatively benign. PHYSICAL EXAMINATION: GENERAL: Shows him to be an elderly gentleman, in no respiratory distress. VITAL SIGNS: Blood pressure is 148/49 with a heart rate of 61 and temperature 97 degrees. HEENT: Unremarkable. NECK: Supple. No jugular venous distention. LUNGS: Appear to be clear to auscultation and percussion. CARDIAC: S1 is normal. S2 is normal. Regular rate and rhythm. There is a holosystolic regurgitant murmur that is noted. ABDOMEN: Soft and nontender. Positive bowel sounds. Left chest wall dressing is in place. EXTREMITIES: No edema. He has pneumatic compression stockings in place. LABORATORY AND DIAGNOSTIC DATA: White count 7.1, hemoglobin 12.6, and platelet count of 127. Sodium is 138, potassium 4.3, chloride 104, bicarbonate 22, BUN 28, creatinine 1.4 and glucose of 132. His troponins are negative on two separate occasions and his coags, INR 1.1 and PTT of 33. Urinalysis is 5 to 10 wbc's and 0 to 2 rbc's and 1+ leukocyte esterase. X-rays performed included a chest x-ray that was performed in the emergency room, mildly enlarged cardiac silhouette, pulmonary vascular congestion. His electrocardiogram initially showed left bundle-branch conduction of ST-segment depression in II, III, and aVF and V5 and V6. Subsequently, he was in complete heart block with right bundle-branch conduction defect with secondary T-wave changes. This is documented on the EKG that was performed at 5:32 in the morning. His subsequent EKG at 6:03 in the morning shows recurrence of the left bundle again. ASSESSMENT AND PLAN: 1. 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 2. Intermittent right left bundle-branch conduction defect. 3. History of ischemic cardiomyopathy. 4. Chronic immune thrombocytopenic purpura or ITP. 5. Chronic congestive heart failure. 6. Chronic renal insufficiency. 7. Paroxysmal episodes of atrial fibrillation. 8. History of atrial flutter status post ablation. 9. Coronary artery disease, status post 2 separate bypass surgeries and stented arteries. Dr. Dickey, this patient was seen in cardiac consultation. The patient has had profound evidence of bradycardia with heart rate down to 24. Subsequently, reverted back to sinus with left bundle-branch conduction defect. As requested, Dr. Aguero has already seen the patient and a permanent pacemaker was implanted by her. The patient is doing relatively well. At this point, he should be observed in the intensive care unit for a few more hours to assure there was no bleeding. Anticoagulation with Eliquis will be withheld for the time being until the risks are better tolerated in terms of bleeding. He is not in atrial fibrillation at this time. Therefore, risk of thromboembolic disease may be lower. His IV fluids will be discontinued once he starts taking p.o. medications, his usual cardiac medication will be continued. He has had an ischemic cardiomyopathy previously, looks like the last myocardial perfusion imaging that was performed [facility] showed ejection fraction 51% to 55% with 3% reversible defect, small circumflex area territory. Therefore, it is unlikely that he would require intracardiac defibrillator. IV fluid will be discontinued. Echocardiogram will be ordered and the patient will be observed overnight, possibly at home in the next 24 to 48 hours. Santiago Magdaleno M.D. DR: DEMETRI JOB#: [id number] CC:
[2018-01-19] VITALS (7 sets, daily range): BP systolic 134–156; BP diastolic 51–73
[2018-01-19] MEDS ORDERED: LORazepam Inj 2mg/ml 1ml IV PRN (02:45)
[2018-01-19] MEDS ORDERED: Morphine Sulfate 2mg/ml Inj IVP PRN (03:45)
[2018-01-19] MEDS ORDERED: Tylenol #3 tab (300mg/30mg) ORAL PRN (04:00)
[2018-01-19] MEDS ORDERED: Acetaminophen 500mg (ES) tab ORAL PRN (04:00)
[2018-01-19 07:05] LABS: HEMATOCRIT 39.3 % (42.0-52.0); MEAN CORPUSCULAR VOLUME 89 FL (80-99); PLATELET COUNT 86 K/UL (150-450); RED CELL DISTRIBUTION WIDTH 12.7 % (11.6-14.8); WHITE BLOOD COUNT 9.4 K/UL (4.8-10.8)
[2018-01-19 08:09] LABS: ALANINE AMINOTRANSFERASE 21 U/L (12-78); ALBUMIN 3.6 G/DL (3.4-5.0); ALBUMIN/GLOBULIN RATIO 0.8 (1.0-2.7); ALKALINE PHOSPHATASE 47 U/L (46-116); ANION GAP 11 mmol/L (5-15); ASPARTATE AMINO TRANSFERASE 21 U/L (15-37); BILIRUBIN,TOTAL 1.2 MG/DL (0.2-1.0); BLOOD UREA NITROGEN 23 mg/dL (7-18); CALCIUM 8.8 MG/DL (8.5-10.1); CARBON DIOXIDE 25 MMOL/L (21-32); CHLORIDE 105 MMOL/L (98-107); CREATININE 1.4 MG/DL (0.55-1.30); SODIUM 141 MMOL/L (136-145)
[2018-01-19 08:11] LABS: BILIRUBIN,DIRECT 0.2 MG/DL (0.0-0.3)
--- NOTE | 2018-01-19 08:28 | Diagnostic Imaging Report ---
EXAM: XR Chest, 1 View CLINICAL HISTORY: DYSPNEA TECHNIQUE: Frontal view of the chest. COMPARISON: No relevant prior studies available. FINDINGS: Lungs: Subsegmental atelectasis in the left lung base. Mild pulmonary vascular congestion. Pleural space: Unremarkable. The costophrenic angles are sharp. No visible pneumothorax. Heart: Unremarkable. No cardiomegaly. Mediastinum: Unremarkable. Bones/joints: Status post median sternotomy. Intact appearance of sternal wires. Mild degenerative changes in the visualized spine. Vasculature: Atherosclerotic calcifications are noted within the aortic arch. Tubes, lines and devices: Cardiac pacer in the left chest wall with the lead tips in the right atrium and right ventricle regions. IMPRESSION: 1. Subsegmental atelectasis in the left lung base. 2. Mild pulmonary vascular congestion.
[2018-01-19] MEDS ORDERED: Sennosides 8.6mg ORAL SCH (09:00)
[2018-01-19] MEDS ORDERED: Aspirin EC 81mg tab ORAL SCH (09:00)
[2018-01-19] MEDS ORDERED: Carvedilol 12.5mg tab ORAL SCH (09:00)
[2018-01-19] MEDS ORDERED: Losartan 50mg tab ORAL SCH (09:00)
[2018-01-19] MEDS: Aspirin EC 81mg tab ORAL SCH (09:03)
[2018-01-19] MEDS: Lactulose 20gm/30ml UDC ORAL SCH ×4 (09:03→18:04)
[2018-01-19] MEDS: Docusate 100mg cap ORAL SCH ×4 (09:04→18:04)
[2018-01-19] MEDS: Carvedilol 12.5mg tab ORAL SCH ×2 (09:04→21:09)
[2018-01-19] MEDS: Losartan 50mg tab ORAL SCH (09:04)
[2018-01-19] MEDS: Sennosides 8.6mg ORAL SCH (09:04)
--- NOTE | 2018-01-19 10:21 | Pulmonology Progress Note ---
Assessment/Plan Problems: (1) Complete heart block (2) UTI (urinary tract infection) (3) Constipation (4) Hypertension (5) Diabetes mellitus Assessment/Plan s/p pacemaker iv fluids sliding scale start levofloxacin for UTI check electrolytes patient can go home when cleared by cardio Subjective ROS Limited/Unobtainable: No Constitutional: Reports: no symptoms Respiratory: Reports: no symptoms Allergies: Coded Allergies: No Known Allergies (Unverified , 01/18/18) Objective Last 24 Hour Vital Signs Date Time Temp Pulse Resp B/P (MAP) Pulse Ox O2 Delivery O2 Flow Rate FiO2 01/19/18 09:04 156/51 01/19/18 09:04 68 156/51 01/19/18 09:00 Room Air 01/19/18 08:15 68 156/51 (86) 01/19/18 04:00 64 01/19/18 02:00 64 20 150/58 (88) 97 01/19/18 01:00 63 22 151/52 (85) 97 01/19/18 00:00 97.0 62 16 152/51 (84) 97 97.0 01/19/18 00:00 61 01/19/18 00:00 Nasal Cannula 2.0 01/18/18 23:00 62 24 150/61 (90) 97 01/18/18 22:00 63 24 148/52 (84) 97 01/18/18 21:00 64 22 151/51 (84) 97 01/18/18 20:00 97.2 62 16 145/51 (82) 97 97.2 01/18/18 20:00 62 01/18/18 20:00 Nasal Cannula 2.0 01/18/18 19:00 62 22 150/51 (84) 96 01/18/18 18:00 61 22 159/62 (94) 97 01/18/18 17:00 97.6 61 16 148/57 (87) 99 97.6 01/18/18 16:00 61 01/18/18 16:00 Nasal Cannula 2.0 01/18/18 16:00 97.6 60 16 152/53 (86) 98 97.6 01/18/18 15:20 57 01/18/18 15:00 61 18 148/49 (82) 97 01/18/18 14:00 97.8 61 16 139/69 (92) 98 97.8 01/18/18 12:00 Nasal Cannula 2.0 01/18/18 12:00 97.8 60 16 153/99 (117) 100 97.8 01/18/18 11:00 Nasal Cannula 2.0 01/18/18 11:00 153/99 01/18/18 10:26 97.6 61 19 163/62 100 Nasal Cannula 2.0 97.6 Intake and Output 01/18/18 01/19/18 19:00 07:00 Intake Total 135 ml 175 ml Output Total 2220 ml 851 ml Balance -2085 ml -676 ml Intake Oral 120 ml IV Total 135 ml 55 ml Output Urine Total 2220 ml 850 ml Stool Total 1 ml # Bowel Movements 1 Objective General Appearance: WD/WN HEENT: normocephalic, anicteric Respiratory/Chest: chest wall non-tender, lungs clear, chest wall tender Cardiovascular: normal peripheral pulses Abdomen: normal bowel sounds, soft, non tender, no organomegaly Extremities: no cyanosis Skin: no rash 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 Complete Laboratory Tests 01/18/18 11:40: Prothrombin Time 11.4, Prothromb Time International Ratio 1.1, Activated Partial Thromboplast Time 33, Troponin I 0.050 01/19/18 06:00: Troponin I 0.073H, White Blood Count 9.4, Red Blood Count 4.40L, Hemoglobin 13.0L, Hematocrit 39.3L, Mean Corpuscular Volume 89, Mean Corpuscular Hemoglobin 29.6, Mean Corpuscular Hemoglobin Concent 33.2, Red Cell Distribution Width 12.7, Platelet Count 86L, Mean Platelet Volume 9.6, Neutrophils (%) (Auto) , Lymphocytes (%) (Auto) , Monocytes (%) (Auto) , Eosinophils (%) (Auto) , Basophils (%) (Auto) , Neutrophils % (Manual) [Pending] , Lymphocytes % (Manual) [Pending], Platelet Estimate [Pending], Platelet Morphology [Pending], Sodium Level 141, Potassium Level 4.0, Chloride Level 105 , Carbon Dioxide Level 25, Anion Gap 11, Blood Urea Nitrogen 23H, Creatinine 1.4H, Estimat Glomerular Filtration Rate , Glucose Level 101, Calcium Level 8.8 , Total Bilirubin 1.2H, Direct Bilirubin 0.2, Aspartate Amino Transf (AST/SGOT) 21, Alanine Aminotransferase (ALT/SGPT) 21, Alkaline Phosphatase 47, Pro-B-Type Natriuretic Peptide 1850H, Total Protein 8.0, Albumin 3.6, Globulin 4.4, Albumin /Globulin Ratio 0.8L Current Medications Medications (Trade) Dose Ordered Sig/Flash Route PRN Reason Start Time Stop Time Status Last Admin Dose Admin Acetaminophen (Tylenol) 500 mg Q4H PRN ORAL Mild Pain/Temp > 100.5 01/19/18 04:00 02/17/18 15:59 Acetaminophen/ Codeine Phosphate (Tylenol #3) 1 tab Q6H PRN ORAL Moderate Pain (Pain Scale 4-6) 01/19/18 04:00 01/25/18 15:59 Aspirin (Ecotrin) 81 mg DAILY ORAL 01/19/18 09:00 02/18/18 08:59 01/19/18 09:03 Carvedilol (Coreg) 12.5 mg EVERY 12 HOURS ORAL 01/19/18 09:00 02/18/18 08:59 01/19/18 09:04 Dextrose (Dextrose 50%) STAT PRN IV Hypoglycemia 01/19/18 06:45 02/17/18 06:44 Docusate Sodium (Colace) 100 mg THREE TIMES A DAY ORAL 01/19/18 09:00 02/17/18 12:59 01/19/18 09:04 Lactulose (Cephulac) 30 gm THREE TIMES A DAY ORAL 01/19/18 09:00 02/17/18 12:59 01/19/18 09:03 Lorazepam (Ativan 2mg/ml 1ml) 0.5 mg Q4H PRN IV For Anxiety 01/19/18 02:45 01/25/18 06:44 Losartan Potassium (Cozaar) 100 mg DAILY ORAL 01/19/18 09:00 02/18/18 08:59 01/19/18 09:04 Mineral Oil (Fleet's Mineral Oil Enema) 133 ml EVERY OTHER DAY RECTAL 01/20/18 09:00 02/19/18 08:59 Morphine Sulfate (Morphine Sulfate) 1 mg Q4H PRN IVP Severe Pain (Pain Scale 7-10) 01/19/18 03:45 01/25/18 06:44 Ondansetron HCl (Zofran) 4 mg Q6H PRN IVP Nausea & Vomiting 01/19/18 06:45 02/17/18 06:44 Polyethylene Glycol (Miralax) 17 gm BEDTIME ORAL 01/19/18 21:00 02/17/18 20:59 Pravastatin Sodium (Pravachol) 40 mg BEDTIME ORAL 01/19/18 21:00 02/17/18 20:59 Sennosides (Senokot) 1 tab DAILY ORAL 01/19/18 09:00 02/18/18 08:59 01/19/18 09:04 Sami Avila MD Jan 19, 2018 10:21
--- NOTE | 2018-01-19 12:48 | Cardiology Progress Note ---
Assessment/Plan Assessment/Plan 1. 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 2. Intermittent right left bundle-branch conduction defect. 3. History of ischemic cardiomyopathy. 4. Chronic immune thrombocytopenic purpura or ITP. 5. Chronic congestive heart failure. 6. Chronic renal insufficiency. 7. Paroxysmal episodes of atrial fibrillation. 8. History of atrial flutter status post ablation. 9. Coronary artery disease, status post 2 separate bypass surgeries and stented arteries lat in 2016. now s/p ppi hold eliquis not in afib now will resume in 2-3 days observe plt as dropped compared to yest helplock ivf dc nielsen allow self cath tele noted intermittent pacing need fu with ep next week once dcd he is aware Subjective Cardiovascular: Denies: chest pain, lightheadedness Respiratory: Denies: shortness of breath Gastrointestinal/Abdominal: Reports: constipated; Denies: abdominal pain Genitourinary: Denies: burning Subjective wants catheter to be removed Objective Last 24 Hour Vital Signs Date Time Temp Pulse Resp B/P (MAP) Pulse Ox O2 Delivery O2 Flow Rate FiO2 01/19/18 09:04 156/51 01/19/18 09:04 68 156/51 01/19/18 09:00 Room Air 01/19/18 08:15 68 156/51 (86) 01/19/18 08:00 80 01/19/18 04:00 64 01/19/18 02:00 64 20 150/58 (88) 97 01/19/18 01:00 63 22 151/52 (85) 97 01/19/18 00:00 97.0 62 16 152/51 (84) 97 97.0 01/19/18 00:00 61 01/19/18 00:00 Nasal Cannula 2.0 01/18/18 23:00 62 24 150/61 (90) 97 01/18/18 22:00 63 24 148/52 (84) 97 01/18/18 21:00 64 22 151/51 (84) 97 01/18/18 20:00 97.2 62 16 145/51 (82) 97 97.2 01/18/18 20:00 62 01/18/18 20:00 Nasal Cannula 2.0 01/18/18 19:00 62 22 150/51 (84) 96 01/18/18 18:00 61 22 159/62 (94) 97 01/18/18 17:00 97.6 61 16 148/57 (87) 99 97.6 01/18/18 16:00 61 01/18/18 16:00 Nasal Cannula 2.0 01/18/18 16:00 97.6 60 16 152/53 (86) 98 97.6 01/18/18 15:20 57 01/18/18 15:00 61 18 148/49 (82) 97 01/18/18 14:00 97.8 61 16 139/69 (92) 98 97.8 General Appearance: no apparent distress, alert Neck: supple Cardiovascular: normal rate, regular rhythm, other - pacer dressign is clear and dry no bleeding no induration Respiratory/Chest: lungs clear, normal breath sounds Abdomen: normal bowel sounds, non tender, soft Extremities: no swelling Intake and Output 01/18/18 01/19/18 19:00 07:00 Intake Total 135 ml 175 ml Output Total 2220 ml 851 ml Balance -2085 ml -676 ml Intake Oral 120 ml IV Total 135 ml 55 ml Output Urine Total 2220 ml 850 ml Stool Total 1 ml # Bowel Movements 1 Laboratory Tests Test 01/19/18 06:00 White Blood Count 9.4 K/UL (4.8-10.8) Red Blood Count 4.40 M/UL (4.70-6.10) L Hemoglobin 13.0 G/DL (14.2-18.0) L Hematocrit 39.3 % (42.0-52.0) L Mean Corpuscular Volume 89 FL (80-99) Mean Corpuscular Hemoglobin 29.6 PG (27.0-31.0) Mean Corpuscular Hemoglobin Concent 33.2 G/DL (32.0-36.0) Red Cell Distribution Width 12.7 % (11.6-14.8) Platelet Count 86 K/UL (150-450) L Mean Platelet Volume 9.6 FL (6.5-10.1) Neutrophils (%) (Auto) % (45.0-75.0) Lymphocytes (%) (Auto) % (20.0-45.0) Monocytes (%) (Auto) % (1.0-10.0) Eosinophils (%) (Auto) % (0.0-3.0) Basophils (%) (Auto) % (0.0-2.0) Differential Total Cells Counted 100 Neutrophils % (Manual) 70 % (45-75) Lymphocytes % (Manual) 8 % (20-45) L Monocytes % (Manual) 19 % (1-10) H Eosinophils % (Manual) 3 % (0-3) Basophils % (Manual) 0 % (0-2) Band Neutrophils 0 % (0-8) Platelet Estimate Decreased L Platelet Morphology Normal Red Blood Cell Morphology Normal Sodium Level 141 MMOL/L (136-145) Potassium Level 4.0 MMOL/L (3.5-5.1) Chloride Level 105 MMOL/L (98-107) Carbon Dioxide Level 25 MMOL/L (21-32) Anion Gap 11 mmol/L (5-15) Blood Urea Nitrogen 23 mg/dL (7-18) H Creatinine 1.4 MG/DL (0.55-1.30) H Estimat Glomerular Filtration Rate mL/min (>60) Glucose Level 101 MG/DL (74-106) Calcium Level 8.8 MG/DL (8.5-10.1) Total Bilirubin 1.2 MG/DL (0.2-1.0) H Direct Bilirubin 0.2 MG/DL (0.0-0.3) Aspartate Amino Transf (AST/SGOT) 21 U/L (15-37) Alanine Aminotransferase (ALT/SGPT) 21 U/L (12-78) Alkaline Phosphatase 47 U/L (46-116) Troponin I 0.073 ng/mL (0.000-0.056) Pro-B-Type Natriuretic Peptide 1850 pg/mL (0-125) H Total Protein 8.0 G/DL (6.4-8.2) Albumin 3.6 G/DL (3.4-5.0) Globulin 4.4 g/dL Albumin/Globulin Ratio 0.8 (1.0-2.7) L Microbiology Date/Time Source Procedure Growth Status 01/18/18 06:23 Nasal Nares MRSA Culture - Final NO METHICILLIN RESISTANT STAPH AUREUS... Complete Santiago Magdaleno MD Jan 19, 2018 12:48
--- NOTE | 2018-01-19 13:35 | Consultation ---
Consult Note Consult Note [id number] Alpesh Smith MD Jan 19, 2018 13:35
--- NOTE | 2018-01-19 14:42 | Internal Med Progress Note ---
Subjective Date of Service: Jan 19, 2018 Physician Name Domingo Reveles Attending Physician Alex Dickey MD Current Medications Medications (Trade) Dose Ordered Sig/Flash Route PRN Reason Start Time Stop Time Status Last Admin Dose Admin Acetaminophen (Tylenol) 500 mg Q4H PRN ORAL Mild Pain/Temp > 100.5 01/19/18 04:00 02/17/18 15:59 Acetaminophen/ Codeine Phosphate (Tylenol #3) 1 tab Q6H PRN ORAL Moderate Pain (Pain Scale 4-6) 01/19/18 04:00 01/25/18 15:59 Aspirin (Ecotrin) 81 mg DAILY ORAL 01/19/18 09:00 02/18/18 08:59 01/19/18 09:03 Carvedilol (Coreg) 12.5 mg EVERY 12 HOURS ORAL 01/19/18 09:00 02/18/18 08:59 01/19/18 09:04 Dextrose (Dextrose 50%) STAT PRN IV Hypoglycemia 01/19/18 06:45 02/17/18 06:44 Docusate Sodium (Colace) 100 mg THREE TIMES A DAY ORAL 01/19/18 09:00 02/17/18 12:59 01/19/18 13:06 Lactulose (Cephulac) 30 gm THREE TIMES A DAY ORAL 01/19/18 09:00 02/17/18 12:59 01/19/18 13:06 Levofloxacin 50 ml @ 50 mls/hr Q24H IVPB 01/20/18 12:00 01/27/18 11:59 Lorazepam (Ativan 2mg/ml 1ml) 0.5 mg Q4H PRN IV For Anxiety 01/19/18 02:45 01/25/18 06:44 Losartan Potassium (Cozaar) 100 mg DAILY ORAL 01/19/18 09:00 02/18/18 08:59 01/19/18 09:04 Mineral Oil (Fleet's Mineral Oil Enema) 133 ml EVERY OTHER DAY RECTAL 01/20/18 09:00 02/19/18 08:59 Morphine Sulfate (Morphine Sulfate) 1 mg Q4H PRN IVP Severe Pain (Pain Scale 7-10) 01/19/18 03:45 01/25/18 06:44 Ondansetron HCl (Zofran) 4 mg Q6H PRN IVP Nausea & Vomiting 01/19/18 06:45 02/17/18 06:44 Polyethylene Glycol (Miralax) 17 gm BEDTIME ORAL 01/19/18 21:00 02/17/18 20:59 Pravastatin Sodium (Pravachol) 40 mg BEDTIME ORAL 01/19/18 21:00 02/17/18 20:59 Sennosides (Senokot) 1 tab DAILY ORAL 01/19/18 09:00 02/18/18 08:59 01/19/18 09:04 Allergies: Coded Allergies: No Known Allergies (Unverified , 01/18/18) ROS Limited/Unobtainable: No Constitutional: Reports: no symptoms HEENT: Reports: no symptoms Cardiovascular: Reports: no symptoms Respiratory: Reports: no symptoms Gastrointestinal/Abdominal: Reports: no symptoms Genitourinary: Reports: no symptoms Neurologic/Psychiatric: Reports: no symptoms Subjective 87 YO M admitted with syncope. Now complete A/V block; S/P pacemaker implantation 01/18/18. Cover for Int Jourdan Dickey Objective Last Vital Signs Date Time Temp Pulse Resp B/P (MAP) Pulse Ox O2 Delivery O2 Flow Rate FiO2 01/19/18 12:00 65 134/56 (82) 97 01/19/18 09:00 Room Air 01/19/18 02:00 20 01/19/18 00:00 97.0 97.0 01/19/18 00:00 2.0 Laboratory Tests Test 01/19/18 06:00 White Blood Count 9.4 K/UL (4.8-10.8) Red Blood Count 4.40 M/UL (4.70-6.10) L Hemoglobin 13.0 G/DL (14.2-18.0) L Hematocrit 39.3 % (42.0-52.0) L Mean Corpuscular Volume 89 FL (80-99) Mean Corpuscular Hemoglobin 29.6 PG (27.0-31.0) Mean Corpuscular Hemoglobin Concent 33.2 G/DL (32.0-36.0) Red Cell Distribution Width 12.7 % (11.6-14.8) Platelet Count 86 K/UL (150-450) L Mean Platelet Volume 9.6 FL (6.5-10.1) Neutrophils (%) (Auto) % (45.0-75.0) Lymphocytes (%) (Auto) % (20.0-45.0) Monocytes (%) (Auto) % (1.0-10.0) Eosinophils (%) (Auto) % (0.0-3.0) Basophils (%) (Auto) % (0.0-2.0) Differential Total Cells Counted 100 Neutrophils % (Manual) 70 % (45-75) Lymphocytes % (Manual) 8 % (20-45) L Monocytes % (Manual) 19 % (1-10) H Eosinophils % (Manual) 3 % (0-3) Basophils % (Manual) 0 % (0-2) Band Neutrophils 0 % (0-8) Platelet Estimate Decreased L Platelet Morphology Normal Red Blood Cell Morphology Normal Sodium Level 141 MMOL/L (136-145) Potassium Level 4.0 MMOL/L (3.5-5.1) Chloride Level 105 MMOL/L (98-107) Carbon Dioxide Level 25 MMOL/L (21-32) Anion Gap 11 mmol/L (5-15) Blood Urea Nitrogen 23 mg/dL (7-18) H Creatinine 1.4 MG/DL (0.55-1.30) H Estimat Glomerular Filtration Rate mL/min (>60) Glucose Level 101 MG/DL (74-106) Calcium Level 8.8 MG/DL (8.5-10.1) Total Bilirubin 1.2 MG/DL (0.2-1.0) H Direct Bilirubin 0.2 MG/DL (0.0-0.3) Aspartate Amino Transf (AST/SGOT) 21 U/L (15-37) Alanine Aminotransferase (ALT/SGPT) 21 U/L (12-78) Alkaline Phosphatase 47 U/L (46-116) Troponin I 0.073 ng/mL (0.000-0.056) Pro-B-Type Natriuretic Peptide 1850 pg/mL (0-125) H Total Protein 8.0 G/DL (6.4-8.2) Albumin 3.6 G/DL (3.4-5.0) Globulin 4.4 g/dL Albumin/Globulin Ratio 0.8 (1.0-2.7) L Microbiology Date/Time Source Procedure Growth Status 01/18/18 06:23 Nasal Nares MRSA Culture - Final NO METHICILLIN RESISTANT STAPH AUREUS... Complete Intake and Output 01/18/18 01/19/18 19:00 07:00 Intake Total 135 ml 175 ml Output Total 2220 ml 851 ml Balance -2085 ml -676 ml Intake Oral 120 ml IV Total 135 ml 55 ml Output Urine Total 2220 ml 850 ml Stool Total 1 ml # Bowel Movements 1 Objective PHYSICAL EXAMINATION: VITAL SIGNS: Temperature 97.8, respirations 16, pulse 61, blood pressure 139/69. GENERAL: The patient is well-developed and well-nourished white male, in no apparent distress. HEENT: Eyes, pupils are equal and responsive to light and accommodation. Extraocular movements are intact. NECK: Supple without lymphadenopathy. CHEST: Lungs are clear to auscultation bilaterally without wheezes or rales. CARDIOVASCULAR: Regular rate. S1 and S2 are normal without murmurs, rubs, or gallops. ABDOMEN: Soft, nontender, and nondistended. Positive bowel sounds. No evidence of hepatosplenomegaly. Currently, no rebound or guarding noted. EXTREMITIES: Negative for clubbing, cyanosis, or edema. RECTAL/GENITAL: Refused. NEUROLOGIC: Cranial nerves II to XII are grossly intact without focal deficits. Motor strength is 5/5 bilaterally. Deep tendon reflexes are 2+ plantar. Assessment/Plan Problem List: (1) AV block, complete Assessment & Plan: S/P pacemaker implantation 01/18/18. See cardiology note. (2) Hypercholesteremia Assessment & Plan: Continue pravachol (3) Pacemaker (4) Syncope (5) CAD (coronary artery disease) (6) BPH (benign prostatic hyperplasia) (7) HTN (hypertension) Assessment & Plan: Continue coreg and losartan Status: progressing Domingo Reveles MD Jan 19, 2018 14:42
[2018-01-19] MEDS ORDERED: Fleet's Mineral Oil Enema RECTAL SCH (14:45)
[2018-01-19 15:29] LABS: ANION GAP 7 mmol/L (5-15); BLOOD UREA NITROGEN 23 mg/dL (7-18); CALCIUM 8.8 MG/DL (8.5-10.1); CARBON DIOXIDE 28 MMOL/L (21-32); CHLORIDE 105 MMOL/L (98-107); CREATININE 1.4 MG/DL (0.55-1.30); POTASSIUM 4.2 MMOL/L (3.5-5.1); SODIUM 140 MMOL/L (136-145)
--- NOTE | 2018-01-19 16:30 | Consultation ---
DATE OF CONSULTATION: 01/19/2018 INFECTIOUS DISEASE CONSULTATION CONSULTING PHYSICIAN: Alpesh Smith M.D. REFERRING PHYSICIAN: Sami Avila M.D. REASON FOR CONSULTATION: Evaluation of the patient for UTI and antibiotic management. HISTORY OF PRESENT ILLNESS: The patient is an 87-year-old male with multiple medical problems, who was admitted to this medical center with chief complaint of syncopal episode. The patient has history of urinary obstruction due to BPH using self catheterization at home. Here the patient had a Sharma catheter placed in the emergency room. Also underwent a pacemaker placement yesterday, has been concern for possible urinary tract infection. An Infectious Disease consultation has been requested for further evaluation of the patient's antibiotic management. PAST MEDICAL HISTORY: 1. Hypertension. 2. CAD. 3. BPH. 4. Status post bypass surgery in 1978 and 1993. 5. History of heart block/bradycardia this admission. 6. History of ITP. 7. CHF. 8. Atrial flutter. 9. CKD. ALLERGIES: No known drug allergies. SOCIAL HISTORY: Ex-smoker. FAMILY HISTORY: Not contributing. MEDICATIONS: On Levaquin. REVIEW OF SYSTEMS: History of chills prior to admission. PHYSICAL EXAMINATION: VITAL SIGNS: Pulse 86, respiratory rate 18, and blood pressure 151/50. HEENT: No pale conjunctivae. No icterus. CHEST: Clear. HEART: S1 and S2. ABDOMEN: Soft. GENITOURINARY: Sharma catheter in place. EXTREMITIES: No cyanosis at this time. NEUROLOGIC: Awake. LABORATORY AND DIAGNOSTIC DATA: White blood cells 9.4, hemoglobin 13, and platelets 86. UA unremarkable. BUN 23 and creatinine 1.4. ALT, AST, and alkaline phosphatase unremarkable. Chest x-ray, left lung base atelectasis. ASSESSMENT: The patient is an 87-year-old male with history of syncopal episode and chills prior to admission. 1. Afebrile. 2. Normal WBC. 3. Mild pyuria, ? UTI. 4. History of chills prior to admission. PLAN: 1. Continue Levaquin day #1 for now (may stop soon if the patient stays stable and cultures are negative). 2. Monitor CBC. 3. Monitor BMP. 4. Monitor cultures blood, urine. 5. Cardiac follow up on the recent pacemaker placement. 6. Based on the patient with laboratories, we will do further recommendation. Alpesh Smith M.D. DR: KENYATTA JOB#: [id number] CC:
[2018-01-19] MEDS ORDERED: Miralax 17gm pkt ORAL SCH (21:00)
[2018-01-20] VITALS: BP 113/58
[2018-01-20 04:00] VITALS: BP 114/47
[2018-01-20 07:53] LABS: HEMATOCRIT 35.5 % (42.0-52.0); HEMOGLOBIN 11.4 G/DL (14.2-18.0); MEAN CORPUSCULAR VOLUME 90 FL (80-99); PLATELET COUNT 78 K/UL (150-450); RED BLOOD COUNT 3.95 M/UL (4.70-6.10); RED CELL DISTRIBUTION WIDTH 12.9 % (11.6-14.8); WHITE BLOOD COUNT 8.4 K/UL (4.8-10.8)
[2018-01-20 07:59] VITALS: BP 123/55
[2018-01-20] MEDS: Aspirin EC 81mg tab ORAL SCH (08:20)
[2018-01-20] MEDS: Sennosides 8.6mg ORAL SCH ×2 (08:20→08:27)
[2018-01-20] MEDS: Docusate 100mg cap ORAL SCH ×3 (08:20→11:52)
[2018-01-20] MEDS: Losartan 50mg tab ORAL SCH (08:20)
[2018-01-20] MEDS: Lactulose 20gm/30ml UDC ORAL SCH ×2 (08:21→11:32)
[2018-01-20] MEDS: Carvedilol 12.5mg tab ORAL SCH (08:21)
[2018-01-20] MEDS ORDERED: Fleet's Mineral Oil Enema RECTAL SCH ×2 (09:00)
--- NOTE | 2018-01-20 11:30 | Cardiac Electrophysiology PN ---
Assessment/Plan Problem List: (1) CAD (coronary artery disease) (2) Hypertension (3) AV block, complete (4) Pacemaker Status: stable, progressing Status Narrative Mr Boo is stable. His rhythm is stable, - AV paced, and pacer is functioning normally. His pacemaker was checked: sensing is 3.6 mv in the atrium, 24 mv in ventricle. Pacing threshold 0.8v at o.4 ms atr, 0.4 v/ 0.4 ms ventr. Lead impedances are 571 ohm in the atr, and 784 ohm in the ventricle. Incision is healing well. Assessment/Plan Dc plan per primary team. Wound care and activity instructions given Will see as outpt for wound check next wk and arrange for office and remote monitoring for pacer followup. Subjective ROS Limited/Unobtainable: No Subjective Cardiac EP Pt feels well; mild incisional pain Objective Last 24 Hour Vital Signs Date Time Temp Pulse Resp B/P (MAP) Pulse Ox O2 Delivery O2 Flow Rate FiO2 01/20/18 08:48 Room Air 01/20/18 08:21 73 123/55 01/20/18 08:20 123/55 01/20/18 07:59 71 01/20/18 07:59 97.5 73 20 123/55 (77) 95 97.5 01/20/18 04:00 65 01/20/18 04:00 96.9 64 20 114/47 (69) 92 96.9 01/20/18 00:00 97.0 68 19 113/58 (76) 95 97.0 01/20/18 00:00 70 01/19/18 21:09 67 141/64 01/19/18 20:03 Room Air 01/19/18 20:00 76 01/19/18 20:00 97.7 67 18 141/64 (89) 95 97.7 01/19/18 16:00 98.1 70 20 143/73 (96) 95 98.1 01/19/18 16:00 92 01/19/18 12:00 65 134/56 (82) 97 01/19/18 12:00 65 General Appearance: WD/WN, no apparent distress, alert EENT: PERRL/EOMI Neck: non-tender, supple, no JVD Rhythm: NSR Cardiovascular: normal rate, regular rhythm, no gallop/murmur Respiratory/Chest: lungs clear, other - L infraclav site - clean. no hematoma Intake and Output 01/19/18 01/20/18 19:00 07:00 Intake Total 590 ml 120 ml Output Total 250 ml Balance 340 ml 120 ml Intake Oral 590 ml 120 ml Output Urine Total 250 ml # Voids 1 # Bowel Movements 4 1 Laboratory Tests Test 01/19/18 14:40 01/20/18 06:05 Sodium Level 140 MMOL/L (136-145) Potassium Level 4.2 MMOL/L (3.5-5.1) Chloride Level 105 MMOL/L (98-107) Carbon Dioxide Level 28 MMOL/L (21-32) Anion Gap 7 mmol/L (5-15) Blood Urea Nitrogen 23 mg/dL (7-18) H Creatinine 1.4 MG/DL (0.55-1.30) H Estimat Glomerular Filtration Rate mL/min (>60) Glucose Level 116 MG/DL (74-106) H Calcium Level 8.8 MG/DL (8.5-10.1) Troponin I 0.042 ng/mL (0.000-0.056) 0.049 ng/mL (0.000-0.056) White Blood Count 8.4 K/UL (4.8-10.8) Red Blood Count 3.95 M/UL (4.70-6.10) L Hemoglobin 11.4 G/DL (14.2-18.0) L Hematocrit 35.5 % (42.0-52.0) L Mean Corpuscular Volume 90 FL (80-99) Mean Corpuscular Hemoglobin 28.9 PG (27.0-31.0) Mean Corpuscular Hemoglobin Concent 32.1 G/DL (32.0-36.0) Red Cell Distribution Width 12.9 % (11.6-14.8) Platelet Count 78 K/UL (150-450) L Mean Platelet Volume 9.7 FL (6.5-10.1) Neutrophils (%) (Auto) % (45.0-75.0) Lymphocytes (%) (Auto) % (20.0-45.0) Monocytes (%) (Auto) % (1.0-10.0) Eosinophils (%) (Auto) % (0.0-3.0) Basophils (%) (Auto) % (0.0-2.0) Differential Total Cells Counted 100 Neutrophils % (Manual) 68 % (45-75) Lymphocytes % (Manual) 9 % (20-45) L Monocytes % (Manual) 18 % (1-10) H Eosinophils % (Manual) 4 % (0-3) H Basophils % (Manual) 0 % (0-2) Band Neutrophils 1 % (0-8) Platelet Estimate Decreased L Platelet Morphology Normal Red Blood Cell Morphology Normal Microbiology Date/Time Source Procedure Growth Status 01/18/18 06:23 Nasal Nares MRSA Culture - Final NO METHICILLIN RESISTANT STAPH AUREUS... Complete 01/18/18 06:23 Rectum VRE Culture - Final NO VANCOMYCIN RESISTANT ENTEROCOCCUS ... Resulted 01/18/18 06:23 Rectum Pending Resulted Maira Aguero MD Jan 20, 2018 11:30
[2018-01-20 12:00] VITALS: BP 121/58
--- NOTE | 2018-01-20 12:59 | Pulmonology Progress Note ---
Assessment/Plan Problems: (1) Complete heart block (2) UTI (urinary tract infection) (3) Constipation (4) Hypertension (5) Diabetes mellitus Assessment/Plan s/p pacemaker iv fluids sliding scale start levofloxacin for UTI check electrolytes patient can go home when cleared by cardio d/w Dr. Landers, pt can go home today Subjective ROS Limited/Unobtainable: No Constitutional: Reports: no symptoms HEENT: Repors: no symptoms Respiratory: Reports: no symptoms Allergies: Coded Allergies: No Known Allergies (Unverified , 01/18/18) Objective Last 24 Hour Vital Signs Date Time Temp Pulse Resp B/P (MAP) Pulse Ox O2 Delivery O2 Flow Rate FiO2 01/20/18 12:00 97.5 62 20 121/58 (79) 98 97.5 01/20/18 08:48 Room Air 01/20/18 08:21 73 123/55 01/20/18 08:20 123/55 01/20/18 07:59 71 01/20/18 07:59 97.5 73 20 123/55 (77) 95 97.5 01/20/18 04:00 65 01/20/18 04:00 96.9 64 20 114/47 (69) 92 96.9 01/20/18 00:00 97.0 68 19 113/58 (76) 95 97.0 01/20/18 00:00 70 01/19/18 21:09 67 141/64 01/19/18 20:03 Room Air 01/19/18 20:00 76 01/19/18 20:00 97.7 67 18 141/64 (89) 95 97.7 01/19/18 16:00 98.1 70 20 143/73 (96) 95 98.1 01/19/18 16:00 92 Intake and Output 01/19/18 01/20/18 19:00 07:00 Intake Total 590 ml 120 ml Output Total 250 ml Balance 340 ml 120 ml Intake Oral 590 ml 120 ml Output Urine Total 250 ml # Voids 1 # Bowel Movements 4 1 Objective General Appearance: WD/WN HEENT: normocephalic, anicteric Respiratory/Chest: chest wall non-tender, lungs clear, chest wall tender Cardiovascular: normal peripheral pulses Abdomen: normal bowel sounds, soft, non tender, no organomegaly Extremities: no cyanosis Skin: no rash Neurologic/Psychiatric: veterans' coordinator II-XII grossly normal Lymphatic: no neck adenopathy Microbiology Date/Time Source Procedure Growth Status 01/18/18 06:23 Nasal Nares MRSA Culture - Final NO METHICILLIN RESISTANT STAPH AUREUS... Complete 01/18/18 06:23 Rectum VRE Culture - Final NO VANCOMYCIN RESISTANT ENTEROCOCCUS ... Resulted 01/18/18 06:23 Rectum Pending Resulted Laboratory Tests 01/19/18 14:40: Sodium Level 140, Potassium Level 4.2, Chloride Level 105, Carbon Dioxide Level 28, Anion Gap 7, Blood Urea Nitrogen 23H, Creatinine 1.4H, Estimat Glomerular Filtration Rate , Glucose Level 116H, Calcium Level 8.8, Troponin I 0.042 01/20/18 06:05: Troponin I 0.049, White Blood Count 8.4, Red Blood Count 3.95L, Hemoglobin 11.4L , Hematocrit 35.5L, Mean Corpuscular Volume 90, Mean Corpuscular Hemoglobin 28.9 , Mean Corpuscular Hemoglobin Concent 32.1, Red Cell Distribution Width 12.9, Platelet Count 78L, Mean Platelet Volume 9.7, Neutrophils (%) (Auto) , Lymphocytes (%) (Auto) , Monocytes (%) (Auto) , Eosinophils (%) (Auto) , Basophils (%) (Auto) , Differential Total Cells Counted 100, Neutrophils % ( Manual) 68, Lymphocytes % (Manual) 9L, Monocytes % (Manual) 18H, Eosinophils % ( Manual) 4H, Basophils % (Manual) 0, Band Neutrophils 1, Platelet Estimate DecreasedL, Platelet Morphology Normal, Red Blood Cell Morphology Normal Current Medications Medications (Trade) Dose Ordered Sig/Flash Route PRN Reason Start Time Stop Time Status Last Admin Dose Admin Acetaminophen (Tylenol) 500 mg Q4H PRN ORAL Mild Pain/Temp > 100.5 01/19/18 04:00 02/17/18 15:59 Acetaminophen/ Codeine Phosphate (Tylenol #3) 1 tab Q6H PRN ORAL Moderate Pain (Pain Scale 4-6) 01/19/18 04:00 01/25/18 15:59 01/20/18 01:20 Aspirin (Ecotrin) 81 mg DAILY ORAL 01/19/18 09:00 02/18/18 08:59 01/20/18 08:20 Carvedilol (Coreg) 12.5 mg EVERY 12 HOURS ORAL 01/19/18 09:00 02/18/18 08:59 01/20/18 08:21 Dextrose (Dextrose 50%) 25 ml PRN IV Hypoglycemia 01/20/18 09:45 02/19/18 09:44 Dextrose (Dextrose 50%) 50 ml PRN IV hypoglycemia 01/20/18 09:45 02/19/18 09:44 Docusate Sodium (Colace) 100 mg THREE TIMES A DAY ORAL 01/19/18 09:00 02/17/18 12:59 01/20/18 11:52 Lactulose (Cephulac) 30 gm THREE TIMES A DAY ORAL 01/19/18 09:00 02/17/18 12:59 01/20/18 08:21 Levofloxacin 50 ml @ 50 mls/hr Q24H IVPB 01/20/18 12:00 01/27/18 11:59 01/20/18 11:31 Lorazepam (Ativan 2mg/ml 1ml) 0.5 mg Q4H PRN IV For Anxiety 01/19/18 02:45 01/25/18 06:44 Losartan Potassium (Cozaar) 100 mg DAILY ORAL 01/19/18 09:00 02/18/18 08:59 01/20/18 08:20 Mineral Oil (Fleet's Mineral Oil Enema) 133 ml EVERY OTHER DAY RECTAL 01/20/18 09:00 02/19/18 08:59 Morphine Sulfate (Morphine Sulfate) 1 mg Q4H PRN IVP Severe Pain (Pain Scale 7-10) 01/19/18 03:45 01/25/18 06:44 Ondansetron HCl (Zofran) 4 mg Q6H PRN IVP Nausea & Vomiting 01/19/18 06:45 02/17/18 06:44 Polyethylene Glycol (Miralax) 17 gm BEDTIME ORAL 01/19/18 21:00 02/17/18 20:59 Pravastatin Sodium (Pravachol) 40 mg BEDTIME ORAL 01/19/18 21:00 02/17/18 20:59 01/19/18 21:09 Sennosides (Senokot) 1 tab DAILY ORAL 01/19/18 09:00 02/18/18 08:59 01/19/18 09:04 Sami Avila MD Jan 20, 2018 12:59
--- NOTE | 2018-01-20 13:25 | Cardiology Progress Note ---
Assessment/Plan Assessment/Plan 1. 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 2. Intermittent right left bundle-branch conduction defect. 3. History of ischemic cardiomyopathy. 4. Chronic immune thrombocytopenic purpura or ITP. 5. Chronic congestive heart failure. 6. Chronic renal insufficiency. 7. Paroxysmal episodes of atrial fibrillation. 8. History of atrial flutter status post ablation. 9. Coronary artery disease, status post 2 separate bypass surgeries and stented arteries lat in 2016. 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 sx ; Denies: chest pain, lightheadedness, palpitations, syncope Respiratory: Denies: shortness of breath Gastrointestinal/Abdominal: Denies: abdominal pain Genitourinary: Denies: burning Subjective wants catheter to be removed Objective Last 24 Hour Vital Signs Date Time Temp Pulse Resp B/P (MAP) Pulse Ox O2 Delivery O2 Flow Rate FiO2 01/20/18 12:00 97.5 62 20 121/58 (79) 98 97.5 01/20/18 11:55 61 01/20/18 08:48 Room Air 01/20/18 08:21 73 123/55 01/20/18 08:20 123/55 01/20/18 07:59 71 01/20/18 07:59 97.5 73 20 123/55 (77) 95 97.5 01/20/18 04:00 65 01/20/18 04:00 96.9 64 20 114/47 (69) 92 96.9 01/20/18 00:00 97.0 68 19 113/58 (76) 95 97.0 01/20/18 00:00 70 01/19/18 21:09 67 141/64 01/19/18 20:03 Room Air 01/19/18 20:00 76 01/19/18 20:00 97.7 67 18 141/64 (89) 95 97.7 01/19/18 16:00 98.1 70 20 143/73 (96) 95 98.1 01/19/18 16:00 92 General Appearance: alert Neck: supple Cardiovascular: normal rate, regular rhythm Respiratory/Chest: lungs clear, normal breath sounds Abdomen: normal bowel sounds, non tender, soft Extremities: non-tender, no swelling Intake and Output 01/19/18 01/20/18 19:00 07:00 Intake Total 590 ml 120 ml Output Total 250 ml Balance 340 ml 120 ml Intake Oral 590 ml 120 ml Output Urine Total 250 ml # Voids 1 # Bowel Movements 4 1 Laboratory Tests Test 01/19/18 14:40 01/20/18 06:05 Sodium Level 140 MMOL/L (136-145) Potassium Level 4.2 MMOL/L (3.5-5.1) Chloride Level 105 MMOL/L (98-107) Carbon Dioxide Level 28 MMOL/L (21-32) Anion Gap 7 mmol/L (5-15) Blood Urea Nitrogen 23 mg/dL (7-18) H Creatinine 1.4 MG/DL (0.55-1.30) H Estimat Glomerular Filtration Rate mL/min (>60) Glucose Level 116 MG/DL (74-106) H Calcium Level 8.8 MG/DL (8.5-10.1) Troponin I 0.042 ng/mL (0.000-0.056) 0.049 ng/mL (0.000-0.056) White Blood Count 8.4 K/UL (4.8-10.8) Red Blood Count 3.95 M/UL (4.70-6.10) L Hemoglobin 11.4 G/DL (14.2-18.0) L Hematocrit 35.5 % (42.0-52.0) L Mean Corpuscular Volume 90 FL (80-99) Mean Corpuscular Hemoglobin 28.9 PG (27.0-31.0) Mean Corpuscular Hemoglobin Concent 32.1 G/DL (32.0-36.0) Red Cell Distribution Width 12.9 % (11.6-14.8) Platelet Count 78 K/UL (150-450) L Mean Platelet Volume 9.7 FL (6.5-10.1) Neutrophils (%) (Auto) % (45.0-75.0) Lymphocytes (%) (Auto) % (20.0-45.0) Monocytes (%) (Auto) % (1.0-10.0) Eosinophils (%) (Auto) % (0.0-3.0) Basophils (%) (Auto) % (0.0-2.0) Differential Total Cells Counted 100 Neutrophils % (Manual) 68 % (45-75) Lymphocytes % (Manual) 9 % (20-45) L Monocytes % (Manual) 18 % (1-10) H Eosinophils % (Manual) 4 % (0-3) H Basophils % (Manual) 0 % (0-2) Band Neutrophils 1 % (0-8) Platelet Estimate Decreased L Platelet Morphology Normal Red Blood Cell Morphology Normal Microbiology Date/Time Source Procedure Growth Status 01/18/18 06:23 Nasal Nares MRSA Culture - Final NO METHICILLIN RESISTANT STAPH AUREUS... Complete 01/18/18 06:23 Rectum VRE Culture - Final NO VANCOMYCIN RESISTANT ENTEROCOCCUS ... Resulted 01/18/18 06:23 Rectum Pending Resulted Santiago Magdaleno MD Jan 20, 2018 13:25
--- NOTE | 2018-01-20 14:35 | Internal Med Progress Note ---
Subjective Date of Service: Jan 20, 2018 Physician Name Reveles,Domingo Attending Physician Alex Dickey MD Current Medications Medications (Trade) Dose Ordered Sig/Flash Route PRN Reason Start Time Stop Time Status Last Admin Dose Admin Acetaminophen (Tylenol) 500 mg Q4H PRN ORAL Mild Pain/Temp > 100.5 01/19/18 04:00 02/17/18 15:59 Acetaminophen/ Codeine Phosphate (Tylenol #3) 1 tab Q6H PRN ORAL Moderate Pain (Pain Scale 4-6) 01/19/18 04:00 01/25/18 15:59 01/20/18 01:20 Aspirin (Ecotrin) 81 mg DAILY ORAL 01/19/18 09:00 02/18/18 08:59 01/20/18 08:20 Carvedilol (Coreg) 12.5 mg EVERY 12 HOURS ORAL 01/19/18 09:00 02/18/18 08:59 01/20/18 08:21 Dextrose (Dextrose 50%) 25 ml PRN IV Hypoglycemia 01/20/18 09:45 02/19/18 09:44 Dextrose (Dextrose 50%) 50 ml PRN IV hypoglycemia 01/20/18 09:45 02/19/18 09:44 Docusate Sodium (Colace) 100 mg THREE TIMES A DAY ORAL 01/19/18 09:00 02/17/18 12:59 01/20/18 11:52 Lactulose (Cephulac) 30 gm THREE TIMES A DAY ORAL 01/19/18 09:00 02/17/18 12:59 01/20/18 08:21 Levofloxacin 50 ml @ 50 mls/hr Q24H IVPB 01/20/18 12:00 01/27/18 11:59 01/20/18 11:31 Lorazepam (Ativan 2mg/ml 1ml) 0.5 mg Q4H PRN IV For Anxiety 01/19/18 02:45 01/25/18 06:44 Losartan Potassium (Cozaar) 50 mg DAILY ORAL 01/21/18 09:00 02/20/18 08:59 Mineral Oil (Fleet's Mineral Oil Enema) 133 ml EVERY OTHER DAY RECTAL 01/20/18 09:00 02/19/18 08:59 Morphine Sulfate (Morphine Sulfate) 1 mg Q4H PRN IVP Severe Pain (Pain Scale 7-10) 01/19/18 03:45 01/25/18 06:44 Ondansetron HCl (Zofran) 4 mg Q6H PRN IVP Nausea & Vomiting 01/19/18 06:45 02/17/18 06:44 Polyethylene Glycol (Miralax) 17 gm BEDTIME ORAL 01/19/18 21:00 02/17/18 20:59 Pravastatin Sodium (Pravachol) 40 mg BEDTIME ORAL 01/19/18 21:00 02/17/18 20:59 01/19/18 21:09 Sennosides (Senokot) 1 tab DAILY ORAL 01/19/18 09:00 02/18/18 08:59 01/19/18 09:04 Allergies: Coded Allergies: No Known Allergies (Unverified , 01/18/18) Subjective 87 YO M admitted with syncope. Now complete A/V block; S/P pacemaker implantation 01/18/18. Cover for Int Marshal-Dr Dickey Objective Last Vital Signs Date Time Temp Pulse Resp B/P (MAP) Pulse Ox O2 Delivery O2 Flow Rate FiO2 01/20/18 13:30 62 68 71 01/20/18 12:00 97.5 20 121/58 (79) 98 97.5 01/20/18 08:48 Room Air 01/19/18 00:00 2.0 Laboratory Tests Test 01/19/18 14:40 01/20/18 06:05 Sodium Level 140 MMOL/L (136-145) Potassium Level 4.2 MMOL/L (3.5-5.1) Chloride Level 105 MMOL/L (98-107) Carbon Dioxide Level 28 MMOL/L (21-32) Anion Gap 7 mmol/L (5-15) Blood Urea Nitrogen 23 mg/dL (7-18) H Creatinine 1.4 MG/DL (0.55-1.30) H Estimat Glomerular Filtration Rate mL/min (>60) Glucose Level 116 MG/DL (74-106) H Calcium Level 8.8 MG/DL (8.5-10.1) Troponin I 0.042 ng/mL (0.000-0.056) 0.049 ng/mL (0.000-0.056) White Blood Count 8.4 K/UL (4.8-10.8) Red Blood Count 3.95 M/UL (4.70-6.10) L Hemoglobin 11.4 G/DL (14.2-18.0) L Hematocrit 35.5 % (42.0-52.0) L Mean Corpuscular Volume 90 FL (80-99) Mean Corpuscular Hemoglobin 28.9 PG (27.0-31.0) Mean Corpuscular Hemoglobin Concent 32.1 G/DL (32.0-36.0) Red Cell Distribution Width 12.9 % (11.6-14.8) Platelet Count 78 K/UL (150-450) L Mean Platelet Volume 9.7 FL (6.5-10.1) Neutrophils (%) (Auto) % (45.0-75.0) Lymphocytes (%) (Auto) % (20.0-45.0) Monocytes (%) (Auto) % (1.0-10.0) Eosinophils (%) (Auto) % (0.0-3.0) Basophils (%) (Auto) % (0.0-2.0) Differential Total Cells Counted 100 Neutrophils % (Manual) 68 % (45-75) Lymphocytes % (Manual) 9 % (20-45) L Monocytes % (Manual) 18 % (1-10) H Eosinophils % (Manual) 4 % (0-3) H Basophils % (Manual) 0 % (0-2) Band Neutrophils 1 % (0-8) Platelet Estimate Decreased L Platelet Morphology Normal Red Blood Cell Morphology Normal Microbiology Date/Time Source Procedure Growth Status 01/18/18 06:23 Nasal Nares MRSA Culture - Final NO METHICILLIN RESISTANT STAPH AUREUS... Complete 01/18/18 06:23 Rectum VRE Culture - Final NO VANCOMYCIN RESISTANT ENTEROCOCCUS ... Resulted 01/18/18 06:23 Rectum Pending Resulted Intake and Output 01/19/18 01/20/18 19:00 07:00 Intake Total 590 ml 120 ml Output Total 250 ml Balance 340 ml 120 ml Intake Oral 590 ml 120 ml Output Urine Total 250 ml # Voids 1 # Bowel Movements 4 1 Objective PHYSICAL EXAMINATION: GENERAL: The patient is well-developed and well-nourished white male, in no apparent distress. HEENT: Eyes, pupils are equal and responsive to light and accommodation. Extraocular movements are intact. NECK: Supple without lymphadenopathy. CHEST: Lungs are clear to auscultation bilaterally without wheezes or rales. CARDIOVASCULAR: Regular rate. S1 and S2 are normal without murmurs, rubs, or gallops. ABDOMEN: Soft, nontender, and nondistended. Positive bowel sounds. No evidence of hepatosplenomegaly. Currently, no rebound or guarding noted. EXTREMITIES: Negative for clubbing, cyanosis, or edema. RECTAL/GENITAL: Refused. NEUROLOGIC: Cranial nerves II to XII are grossly intact without focal deficits. Motor strength is 5/5 bilaterally. Deep tendon reflexes are 2+ plantar. Assessment/Plan Problem List: (1) AV block, complete Assessment & Plan: S/P pacemaker implantation 01/18/18. See cardiology note. (2) Hypercholesteremia Assessment & Plan: Continue pravachol (3) Pacemaker (4) Syncope (5) CAD (coronary artery disease) (6) BPH (benign prostatic hyperplasia) (7) HTN (hypertension) Assessment & Plan: Continue coreg and losartan Assessment/Plan Discharge home today-[facility] Domingo Reveles MD Jan 20, 2018 14:35
--- NOTE | 2018-01-20 15:49 | Cardiology Report ---
APPROVED REPORT EKG Measurement Heart [id number] ID [id number] Atrial pacing by demand Left bundle branch block Abnormal ECG
[2018-01-20 16:00] VITALS: BP 122/62
--- NOTE | 2018-01-20 16:11 | Cardiology Report ---
APPROVED REPORT EKG Measurement Heart [id number] Sinus bradycardia with complete heart block and Idioventricular rhythm Right bundle branch block Marked T wave abnormality, consider lateral ischemia Abnormal ECG
[2018-01-21] MEDS ORDERED: Losartan 50mg tab ORAL SCH (09:00)
--- NOTE | 2018-01-21 11:14 | Cardiology Report ---
APPROVED REPORT EXAM: Two-dimensional and M-mode echocardiogram with Doppler and color Doppler. INDICATION 3rd degree heart block M-Mode DIMENSIONS IVSd1.4 (0.7-1.1cm)Left Atrium (MM)3.9 (1.6-4.0cm) LVDd3.7 (3.5-5.6cm)Aortic Root2.7 (2.0-3.7cm) PWd1.5 (0.7-1.1cm)Aortic Cusp Exc.1.7 (1.5-2.0cm) LVDs3.0 (2.5-4.0cm) PWs1.7 cm Technically difficult study due to poor acoustic windows. Study quality precludes accurate assessment of regional wall motion. Normal left ventricular chamber size, systolic function and wall motion. Left ventricular ejection fraction estimated to be 55 %. Mild left ventricular hypertrophy. No evidence of pericardial effusion. All other cardiac chamber sizes are within normal limits. Focal aortic valve sclerosis with adequate cusp excursion. Mildly thickened mitral valve leaflets with normal excursion. Mild mitral annulus and aortic root calcification. Normal pulmonic valve structure. Normal tricuspid valve structure. IVC measures at 2.0 cm with physiological collapse. A color flow and spectral Doppler study was performed and revealed: Moderate aortic insufficiency. Trace mitral regurgitation. Normal left ventricular diastolic function. Mild tricuspid regurgitation. Tricuspid systolic velocities suggests peak right ventricular systolic pressure of 27 mmHg. Moderate pulmonic regurgitation present.
--- NOTE | 2018-01-22 01:32 | Diagnostic Imaging Report ---
APPROVED REPORT CPT Code: 70254 Present Symptoms Comments: BILATERAL LEGS PAIN. BILATERAL: Imaging reveals a patent deep venous system bilaterally. There is no evidence of thrombus within the femoral, popliteal or tibial segments. The greater saphenous veins are also within normal limits. Doppler indicates normal spontaneous flow within these segments.
--- NOTE | 2018-01-22 06:24 | Immediate Post-Op Evaluation ---
Immediate Post-Op Evalulation Immediate Post-Op Evalulation Procedure: Pacemaker placement Date of Evaluation: Jan 22, 2018 Pain Score (1-10): 0 Nausea: No Vomiting: No Complications 0 Patient Status: awake, reacts, patent, none Hydration Status: adequate Drug: Ancef 2g Given Within 1 Hr of Incision: Yes Evelia Lanier MD Jan 22, 2018 06:24
--- NOTE | 2018-01-22 06:25 | 48 Hour Post Anesthesia Eval ---
Post Anesthesia Evaluation Procedure: Pacemaker placement Date of Evaluation: Jan 19, 2018 Airway: patent Nausea: No Vomiting: No Pain Intensity: 0 Hydration Status: adequate Cardiopulmonary Status: at baseline Mental Status/LOC: patient returned to baseline Post-Anesthesia Complications: 0 Follow-up care needed: N/A - further care as per primary team Evelia Lanier MD Jan 22, 2018 06:25
--- NOTE | 2018-01-22 11:34 | Discharge Summary ---
Discharge Summary Discharge Summary _ DATE OF ADMISSION: 01/18/2018 DATE OF DISCHARGE: 1518 REASON FOR ADMISSION: 87 years old male with past medical history of coronary artery disease, status post CABG, history of ischemic cardiomyopathy, chronic congestive heart failure , paroxysmal atrial fibrillation, history of atrial flutter, status post ablation, ,chronic renal insufficiency, chronic immune thrombocytopenic purpura , was admitted with episode of dizziness , nausea, lightheadedness, diaphoresis. Patient also complained of constipation. In emergency room he was initially in sinus bradycardia, but after rectal exam and enema developed complete AV block with heart rate of 24 bpm. EKG revealed sinus bradycardia with complete heart block , heart rate of 24. Idioventricular rhythm. Left bundle branch block. Patient responded to atropine. Heart rate increased to 83. Blood pressure increased to 160s systolic. The temporary transcutaneous pacemaker was placed. Chest x-ray revealed mild cardiomegaly and borderline pulmonary venous congestion. Laboratory workup revealed no leukocytosis, hemoglobin 12.6, hematocrit 37.4, platelets 127. Troponin 0.027. BUN 28 ,creatinine 1.4 ,glucose 132. Pro BNP 1850. Patient admitted to intensive care unit for further management with diagnoses of complete AV block, syncope, constipation, coronary artery disease , hypertension. benign prostatic hypertrophy hypercholesterolemia. CONSULTANTS: pumping station engineer Dr. Magdaleno cardiac sewing machine mechanic Dr Landers pulmonary Dr. Avila ID specialist Dr. Smith [facility] COURSE: Patient admitted to ICU . Patient was on IV hydration initially. Patient undergone f permanent pacemaker implantation for complete AV block. Cardiac sewing machine mechanic closely followed. Incision was healing well. Pacer was checked and was functioning normally. Telemetry demonstrated AV pacing rhythm. . Patient was instructed on wound care and activity instructions. Patient to follow-up as outpatient with cardiac sewing machine mechanic in one week Agronomy Professor closely followed,. Patient had an ischemic cardiomyopathy previously. Myocardial perfusion imaging that was performed at [facility] and showed ejection fraction 51% to 55% with 3% reversible defect, small circumflex area territory. It was unlikely that he would require intracardiac defibrillator. IV fluid discontinued. Echocardiogram revealed preserved ejection fraction of 55%. No wall motion abnormalities noted. m Right ventricular systolic pressure of 27. Moderate aortic insufficiency. Moderate tricuspid regurgitation. Venous duplex bilateral lower extremity revealed no evidence of acute DVT. Antiplatelet therapy with aspirin was continued along with statin. Lipid panel was stable. Agronomy Professor suggested to hold Eliquis for 1 day, since patient was not in atrial fibrillation and platelet count was trending down. Agronomy Professor recommended to follow-up with Dr. Jin/cell inspector prior to starting Eliquis. Blood pressure was managed with beta munira and ARB and remained stable. Patient was on empiric antibiotics after pacemaker. Blood cultures were negative. Supplemental oxygen provided as needed to keep pulse oximetry above 92%. Bowel regimen instituted. Patient was able to have bowel movement. Renal parameters and electrolytes were closely monitored, , electrolytes corrected as needed, nephrotoxins were avoided. Creatinine remained at the baseline. Pain management addressed as needed. Supportive care provided. Patient stabilized and was ready for discharge home with home health services. 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 to 24 s/p permanent pacemaker implantation Pre-syncopal episodes, likely secondary to complete heart block History of ischemic cardiomyopathy Intermittent right left bundle-branch conduction defect Chronic congestive heart failure Paroxysmal atrial fibrillation History of atrial flutter ,status post ablation Coronary artery disease, status post 2 separate bypass surgery and stenting artery in 2016 History of ischemic cardiomyopathy Chronic renal insufficiency Chronic immune thrombocytopenic purpura/ITP BPH Hypertension Hypercholesterolemia DISCHARGE MEDICATIONS: See Medication Reconciliation list. DISCHARGE INSTRUCTIONS: Patient was discharged home with home health services. Follow up with primary care provider in one week. I have been assigned to dictate discharge summary for this account. I was not involved in the patient's management. Radha Rob NP Jan 22, 2018 11:34
--- NOTE | 2018-01-22 16:01 | Diagnostic Imaging Report ---
INDICATION: Pain, intraoperative TECHNIQUE: Intraoperative Imaging Fluoroscopy time: 173 seconds Total dose: 0.96010 mGym2 Total number of images: 1 COMPARISON: None FINDINGS: Intraoperative images document pacemaker leads in the expected region of the right atrium and right ventricular apex IMPRESSION: Intraoperative imaging, as described
== END 2018-01-20 16:35 | disposition home health service (06) | DRG 243 ==
LOC: EDBD 05:02 → EMR 05:23 → UNDOADMIN 05:35 → ICU 05:35 → EDBEDREQSVC 05:47 → EDBEDREQ 05:47 → SUR 07:37 → 2E 01-19 02:29
DX: I44.2 Atrioventricular block, complete (principal); I13.0 Hypertensive heart and chronic kidney disease with heart failure and stage 1 through stage 4 chronic kidney disease, or unspecified chronic kidney disease; D69.3 Immune thrombocytopenic purpura; R00.1 Bradycardia, unspecified; I25.5 Ischemic cardiomyopathy; I45.2 Bifascicular block; I50.9 Heart failure, unspecified; N18.9 Chronic kidney disease, unspecified; I48.0 Paroxysmal atrial fibrillation; I25.10 Atherosclerotic heart disease of native coronary artery without angina pectoris; Z95.1 Presence of aortocoronary bypass graft; Z95.5 Presence of coronary angioplasty implant and graft; N40.0 Benign prostatic hyperplasia without lower urinary tract symptoms; E78.00 Pure hypercholesterolemia, unspecified; Z79.01 Long term (current) use of anticoagulants; Z87.891 Personal history of nicotine dependence; E11.22 Type 2 diabetes mellitus with diabetic chronic kidney disease; K59.00 Constipation, unspecified
CPT/HCPCS: 36415; 71045; 76001; 80048; 80053; 81003; 82248; 82550; 82553; 83880; 84484; 85007; 85025; 85610; 85730; 86850; 86900; 86901; 87040; 87081; 93005; 93306; 93970; 94003; 94150; 99291

== ENCOUNTER 2018-04-18 20:39 | Inpatient (IN) | payer MEDICARE ==
[~2018-04-18] VITALS: Ht 170.2 cm; Wt 78.5 kg
[~2018-04-18 20:39] MED LIST: ASPIR 8181 MG ORAL; CARVEDILOL3.125 MG ORAL; COREG12.5 MG ORAL; ELIQUIS2.5 MG PO; ISOSORBIDE MONO10 MG PO; ISOSORBIDE MONO20 MG PO; LOSARTAN POTAS100 MG ORAL; LOSARTAN POTASS25 MG ORAL; PRAVACHOL40 MG ORAL; PRAVASTATIN SOD20 M1 ORAL
[2018-04-18 20:40] VITALS: BP 199/98
[2018-04-18] MEDS ORDERED: Nitroglycerin 2% oint pkt TOPIC ONE (20:45)
--- NOTE | 2018-04-18 20:46 | Emergency Room Report ---
History of Present Illness General Chief Complaint: Chest Pain Source: Patient, Family Member, EMS Present Illness HPI Patient presents with exertional chest pressure. He spoke to his doctor and who wanted him to go to the emergency department yesterday. He didn't go because he has an appointment with him tomorrow. The pain today was 8/10 before paramedics were summoned. After aspirin and nitroglycerin the pain was reduced to 4/10. He states it feels the same as when he had problems requiring quadruple bypass. He's had open heart surgery twice. He has a history of atrial fibrillation and is post pacemaker placement. He's on Elaquis. He also takes a baby aspirin. Can Cutter EKG suggested myocardial infarction (but not STEMI). [facility] and advised transport to [facility]. Over the last few days the chest pressure has been exertional and seems to have gotten worse with less exercise. Feels like when he had prior blockage and needed stents. His blood pressure has been out of control. Seems to be related to exertion. Patient self cath for urine. Followed by urologist. States possible infection. No fevers, chills, dysuria. No abdominal pain. No bruising or bleeding. No productive cough, sore throat, headache, rashes. Allergies: Coded Allergies: No Known Allergies (Unverified , 01/18/18) Patient History Past Medical History: see triage record Past Surgical History: CABG, PTCA, pacemaker Social History Narrative , born [place]. Worked for [employer] Reviewed Nursing Documentation: PMH: Agreed; PSxH: Agreed Nursing Documentation-PM Past Medical History: No History, Except For Hx Cardiac Problems: Yes - pacermaker, hyperlipidemia Hx Hypertension: Yes Hx Diabetes: Yes Review of Systems All Other Systems: negative except mentioned in HPI Physical Exam Vital Signs Date Time Temp Pulse Resp B/P (MAP) Pulse Ox O2 Delivery O2 Flow Rate FiO2 04/18/18 20:21 97.3 72 20 199/98 99 Room Air Sp02 EP Interpretation: reviewed, normal General Appearance: well appearing, no apparent distress, GCS 15 Head: normocephalic Eyes: bilateral eye normal inspection, bilateral eye PERRL ENT: moist mucus membranes Neck: supple Respiratory: lungs clear, normal breath sounds, other - pacer L Cardiovascular #1: regular rate, rhythm, no edema Cardiovascular #2: 2+ radial (R) Gastrointestinal: normal inspection, normal bowel sounds, non tender, no mass, non-distended Genitourinary: no CVA tenderness Musculoskeletal: back normal, gait/station normal, normal range of motion, no calf tenderness, Emeli's Sign negative Neurologic: alert, oriented x3, grossly normal Psychiatric: mood/affect normal Skin: normal inspection, warm/dry Medical Decision Making Diagnostic Impression: Primary Impression: ACS (acute coronary syndrome) Additional Impression: Renal insufficiency ER Course Patient presents with reproducible and worsening chest pain with exertion. Differential includes acute myocardial infarction, unstable angina, pulmonary embolus, acute coronary syndrome amongst others. Evaluation will be with EKG, chest x-ray and labs. The patient received aspirin and nitroglycerin the field. We will continue nitroglycerin here. He is already on a nominal anticoagulants. EKG with atrial sensed ventricular paced rhythm rate of 74. CXR as below. Labs with neg troponin. Discussed with Dr. Trujillo. Pain free. Metoprolol ordered. As on , no other anticoagulation ordered. BP and HR better after metoprolol. Continues pain free. Ordered UA and discussed this with patient. Admit tele, Dr. Dickey. Laboratory Tests Test 04/18/18 19:13 White Blood Count 7.6 K/UL (4.8-10.8) Red Blood Count 4.09 M/UL (4.70-6.10) L Hemoglobin 11.7 G/DL (14.2-18.0) L Hematocrit 35.3 % (42.0-52.0) L Mean Corpuscular Volume 86 FL (80-99) Mean Corpuscular Hemoglobin 28.5 PG (27.0-31.0) Mean Corpuscular Hemoglobin Concent 33.0 G/DL (32.0-36.0) Red Cell Distribution Width 12.2 % (11.6-14.8) Platelet Count 96 K/UL (150-450) L Mean Platelet Volume 9.7 FL (6.5-10.1) Neutrophils (%) (Auto) % (45.0-75.0) Lymphocytes (%) (Auto) % (20.0-45.0) Monocytes (%) (Auto) % (1.0-10.0) Eosinophils (%) (Auto) % (0.0-3.0) Basophils (%) (Auto) % (0.0-2.0) Differential Total Cells Counted 100 Neutrophils % (Manual) 69 % (45-75) Lymphocytes % (Manual) 16 % (20-45) L Monocytes % (Manual) 5 % (1-10) Eosinophils % (Manual) 10 % (0-3) H Basophils % (Manual) 0 % (0-2) Band Neutrophils 0 % (0-8) Platelet Estimate Decreased L Platelet Morphology Normal Red Blood Cell Morphology Normal Prothrombin Time 11.4 SEC (9.30-11.50) Prothrombin Time INR 1.1 (0.9-1.1) PTT 32 SEC (23-33) Sodium Level 138 MMOL/L (136-145) Potassium Level 4.1 MMOL/L (3.5-5.1) Chloride Level 105 MMOL/L (98-107) Carbon Dioxide Level 24 MMOL/L (21-32) Anion Gap 9 mmol/L (5-15) Blood Urea Nitrogen 24 mg/dL (7-18) H Creatinine 1.3 MG/DL (0.55-1.30) Estimate Glomerular Filtration Rate mL/min (>60) Glucose Level 94 MG/DL (74-106) Calcium Level 9.0 MG/DL (8.5-10.1) Total Bilirubin 0.6 MG/DL (0.2-1.0) Aspartate Amino Transferase (AST) 16 U/L (15-37) Alanine Aminotransferase (ALT) 16 U/L (12-78) Alkaline Phosphatase 44 U/L (46-116) L Total Creatine Kinase 79 U/L (26-308) Troponin I 0.024 ng/mL (0.000-0.056) Pro-B-Type Natriuretic Peptide 716 pg/mL (0-125) H Total Protein 8.1 G/DL (6.4-8.2) Albumin 3.5 G/DL (3.4-5.0) Globulin 4.6 g/dL Albumin/Globulin Ratio 0.8 (1.0-2.7) L EKG Diagnostic Results Rate: normal Rhythm: other - Paced ST Segments: no acute changes ASA given to the pt in ED: Yes Rhythm Strip Diag. Results EP Interpretation: yes Rhythm: no PVC's, no ectopy, other - paced Chest X-Ray Diagnostic Results Chest X-Ray Diagnostic Results : Chest X-Ray Ordered: Yes # of Views/Limited/Complete: 1 View Indication: Chest Pain EP Interpretation: Yes Interpretation: no pneumothorax, other - pacer, L effusion vs atelectasis Impression: Other Electronically Signed by: Electronically signed by Reg Martinez MD Last Vital Signs Date Time Temp Pulse Resp B/P (MAP) Pulse Ox O2 Delivery O2 Flow Rate FiO2 04/19/18 00:50 Room Air 04/19/18 00:40 97.3 61 18 149/70 99 99 Status: improved Disposition: ADMITTED INPATIENT Condition: Serious Reg Martinez MD Apr 18, 2018 20:46
[2018-04-18 21:00] LABS: HEMATOCRIT 35.3 % (42.0-52.0); HEMOGLOBIN 11.7 G/DL (14.2-18.0); MEAN CORPUSCULAR VOLUME 86 FL (80-99); PLATELET COUNT 96 K/UL (150-450); RED BLOOD COUNT 4.09 M/UL (4.70-6.10); RED CELL DISTRIBUTION WIDTH 12.2 % (11.6-14.8); WHITE BLOOD COUNT 7.6 K/UL (4.8-10.8)
[2018-04-18 21:04] LABS: ANION GAP 9 mmol/L (5-15); BLOOD UREA NITROGEN 24 mg/dL (7-18); CARBON DIOXIDE 24 MMOL/L (21-32); CHLORIDE 105 MMOL/L (98-107); CREATININE 1.3 MG/DL (0.55-1.30); POTASSIUM 4.1 MMOL/L (3.5-5.1); SODIUM 138 MMOL/L (136-145)
[2018-04-18 21:12] LABS: INR 1.1 (0.9-1.1)
[2018-04-18 21:15] LABS: ALANINE AMINOTRANSFERASE 16 U/L (12-78); ALBUMIN 3.5 G/DL (3.4-5.0); ALBUMIN/GLOBULIN RATIO 0.8 (1.0-2.7); ALKALINE PHOSPHATASE 44 U/L (46-116); ASPARTATE AMINO TRANSFERASE 16 U/L (15-37); BILIRUBIN,TOTAL 0.6 MG/DL (0.2-1.0); CREATINE KINASE 79 U/L (26-308)
[2018-04-18] MEDS ORDERED: Metoprolol 5mg/5ml Inj IVP STA (21:15)
[2018-04-18 22:21] VITALS: BP 156/72
[2018-04-18] MEDS ORDERED: Enalaprilat 2.5mg/2ml Inj IV PRN (22:30)
[2018-04-18] MEDS ORDERED: Morphine Sulfate 2mg/ml Inj IVP PRN (22:30)
[2018-04-18] MEDS ORDERED: dilTIAZem HCl 25mg/5ml Inj IV PRN (22:30)
[2018-04-18] MEDS ORDERED: Albuterol/Ipratropium 3ml neb HHN PRN (22:30)
[2018-04-18] MEDS ORDERED: Nitroglycerin Subl 0.4mg tab SL PRN (22:30)
[2018-04-18] MEDS ORDERED: Miralax 17gm pkt ORAL PRN (22:30)
[2018-04-19] VITALS (9 sets, daily range): BP systolic 134–165; BP diastolic 58–79
--- NOTE | 2018-04-19 01:08 | History & Physical ---
History and Physical History & Physicial Last 24 Hour Vital Signs Date Time Temp Pulse Resp B/P (MAP) Pulse Ox O2 Delivery O2 Flow Rate FiO2 04/19/18 00:38 97.3 61 18 149/70 99 Room Air 04/18/18 22:21 97.3 67 20 156/72 99 Room Air 04/18/18 21:21 64 178/83 04/18/18 20:43 172/64 04/18/18 20:40 72 20 Room Air 99 04/18/18 20:40 97.3 75 20 199/98 99 Room Air 04/18/18 20:21 97.3 72 20 199/98 99 Room Air Alex Dickey MD Apr 19, 2018 01:08
[2018-04-19] MEDS ORDERED: Enalaprilat 2.5mg/2ml Inj IV PRN (01:45)
[2018-04-19] MEDS ORDERED: Miralax 17gm pkt ORAL PRN ×2 (02:30→16:45)
[2018-04-19] MEDS ORDERED: Albuterol/Ipratropium 3ml neb HHN PRN (02:30)
[2018-04-19] MEDS ORDERED: Morphine Sulfate 2mg/ml Inj IVP PRN (02:30)
[2018-04-19] MEDS ORDERED: Nitroglycerin Subl 0.4mg tab SL PRN (02:30)
[2018-04-19 04:34] LABS: HEMATOCRIT 36.4 % (42.0-52.0); HEMOGLOBIN 12.2 G/DL (14.2-18.0); MEAN CORPUSCULAR VOLUME 86 FL (80-99); PLATELET COUNT 99 K/UL (150-450); RED BLOOD COUNT 4.21 M/UL (4.70-6.10); RED CELL DISTRIBUTION WIDTH 12.1 % (11.6-14.8); WHITE BLOOD COUNT 7.2 K/UL (4.8-10.8)
[2018-04-19 04:50] LABS: INR 1.1 (0.9-1.1)
[2018-04-19 05:03] LABS: CHOLESTEROL 115 MG/DL (< 200); HDL CHOLESTEROL 40 MG/DL (40-60); TRIGLYCERIDES 72 MG/DL (30-150)
--- NOTE | 2018-04-19 06:01 | History and Physical Report ---
DATE OF ADMISSION: 04/18/2018 CHIEF COMPLAINT: Uncontrolled hypertension and chest pressure. HISTORY OF PRESENT ILLNESS: This is an 87-year-old very delightful gentleman with past medical history significant for history of complete heart block, status post pacemaker placement by Dr. Maira Aguero on 01/18/2018 at [facility], history of chronic atrial fibrillation, BPH, chronic kidney disease stage 3, coronary artery disease, anemia, congestive heart failure status post CABG, dyslipidemia, hypertension, ITP with history of unstable angina, status post coronary artery disease with stent placement, atrial flutter ablation on September 03, [address] Geoffrey Stokes multiple cardiac catheterizations done at [facility] who presented to the hospital complained about chest pressure and elevated blood pressure. He stated that his blood pressure has been elevated in systolic of 170s and contacted his primary equipment service associate, Dr. Reg Trujillo and the patient was advised to come to the hospital. However, he has been monitoring his blood pressure at home. He was doing okay. Denies any chest pressure until today. He brought big speakers and tried to move the speakers and noted that his blood pressure has been rising, after that felt that the chest discomfort. His blood pressure at home raised as high as systolic of 200 and he decided to call 911. Shortly after initial evaluation by EMS, the patient was transferred to the hospital and upon arrival to the emergency room, the patient's blood pressure was noted to be 199/98 and subsequently the patient was admitted to the hospital with chest pain and possible acute coronary syndrome as well as hypertensive urgency. PAST MEDICAL HISTORY/PAST SURGICAL HISTORY: As above. History of complete heart block, status post pacemaker on 01/18/[address] Maira Aguero at [facility], history of chronic atrial fibrillation, BPH, chronic kidney disease stage 3, coronary artery disease, prior history of myocardial infarction, ____ status post CABG on 10/12/2011, dyslipidemia, hypertension, ITP, non ST-elevation [place], unstable angina, coronary stent placement twice in 2011, cataract surgery, and history of atrial flutter ablation. MEDICATIONS AT HOME: Please refer to medication reconciliation. ALLERGIES: No known drug allergies. SOCIAL HISTORY: The patient denies any smoking, alcohol, or drugs. Occasionally glass of wine. FAMILY HISTORY: Stroke in mother, father, and brother. REVIEW OF SYSTEMS: Complained about chest discomfort. Denies any hemoptysis or hematochezia. Denies any double vision. Denies any loss of consciousness. Denies any suicidal ideation. PHYSICAL EXAMINATION: VITAL SIGNS: On admission from the ER, temperature 97.3, pulse of 72, respirations 20, and blood pressure 199/98. GENERAL: The patient is awake and responsive, in no acute distress. HEAD AND NECK: Pupils are equal and reactive to light. Extraocular movements are intact. Neck was supple. No JVD. LUNGS: Good air entry. No wheezing or rales. HEART: S1 and S2. Distant heart sounds. Irregular. Pacemaker in the left-sided chest wall. ABDOMEN: Soft, nondistended, and nontender. Positive bowel sounds. EXTREMITIES: No cyanosis, clubbing, or edema. NEUROLOGIC: Cranial nerves II through XII are grossly intact. Motor is 5/5 in all extremities. Gait is intact. RECTAL: Refused and deferred. GENITOURINARY: Refused and deferred. PSYCHIATRIC: Mood and affect are intact. LABORATORY AND DIAGNOSTIC DATA: On admission, WBC of 7.6, hemoglobin 11, hematocrit 35, and platelets are 96,000. Sodium 138, potassium 4.1, chloride 105, bicarbonate 24, BUN 24, and creatinine 1.3. Alkaline phosphatase 44. Troponin 0.024. ProBNP of 716. PT of 11, INR 1.1, and PTT of 32. EKG noted to be atrial pacing with a ventricular rate of 74, wide QRS. No ST elevation was noted. ASSESSMENT: 1. Chest pain, possibly due to elevated blood pressure; however, cannot rule out acute coronary syndrome. 2. Hypertensive urgency. 3. History of atrial fibrillation, status post flutter ablation. 4. Chronic kidney disease, stage 3. 5. Thrombocytopenia with history of ITP. 6. Dyslipidemia. 7. Congestive heart failure, chronic. 8. Coronary artery disease, status post CABG and PTCA with stent. PLAN: Admit the patient to telemetry. We will follow up laboratory and blood pressure closely. Discussed the case with Dr. Avila from Pulmonary Critical Care. Follow up with Cardiology, Dr. Maira Aguero in the morning. Code status is Full Code. DVT prophylaxis, Eliquis. Monitor blood pressure closely. Alex Dickey M.D. DR: TERESA JOB#: [id number] CC:
[2018-04-19] MEDS ORDERED: Eliquis 2.5mg tablet ORAL SCH (09:00)
[2018-04-19] MEDS ORDERED: Losartan 50mg tab ORAL SCH ×2 (09:00→21:00)
[2018-04-19] MEDS: Eliquis 2.5mg tablet ORAL SCH ×2 (09:00→18:56)
[2018-04-19] MEDS ORDERED: Aspirin Baby 81mg ORAL SCH ×2 (09:00)
[2018-04-19] MEDS ORDERED: Carvedilol 6.25mg Tab ORAL SCH (09:00)
[2018-04-19] MEDS: Losartan 50mg tab ORAL SCH (09:00)
--- NOTE | 2018-04-19 11:32 | Consultation ---
History of Present Illness General Chief Complaint: Chest Pain Present Illness HPI 87-year-old male with past medical history significant for history of anxiety, complete heart block, status post pacemaker placement. the pt was anxious and circumstantial. the pt perseverated that he has not seen a physician support coordinator and don' t want to spend the weekend here in the hospital. The pt has insomnia. Allergies: Coded Allergies: No Known Allergies (Unverified , 01/18/18) Medication History Scheduled Apixaban (Eliquis), 2.5 MG PO BID, (Reported) Apixaban (Eliquis), 2.5 MG PO DAILY, (Reported) Aspirin* (Aspir 81*), 81 MG ORAL DAILY, (Reported) Carvedilol (Coreg), 12.5 MG ORAL EVERY 12 HOURS, (Reported) Isosorbide Mononitrate (Isosorbide Mononitrate), 30 MG PO DAILY, (Reported) Losartan Potassium (Losartan Potassium), 100 MG ORAL DAILY, (Reported) Pravastatin Sodium (Pravachol), 40 MG ORAL BEDTIME, (Reported) Discontinued Medications Carvedilol* (Carvedilol*), Unknown Dose ORAL EVERY 12 HOURS, (Reported) Discontinued Reason: Medication dose changed Patient History History Provided By: Patient, Medical Record, PMD Healthcare decision maker Resuscitation status Full Code Advanced Directive on File No Past Medical/Surgical History Past Medical/Surgical History: (1) Coronary stent patent (2) Hypertensive emergency (3) ACS (acute coronary syndrome) (4) CAD (coronary artery disease) (5) Diabetes mellitus (6) Hypertension (7) UTI (urinary tract infection) (8) Pacemaker (9) AV block, complete (10) BPH (benign prostatic hyperplasia) (11) HTN (hypertension) Review of Systems Psychiatric: Reports: prior hx, anxiety Physical Exam General Appearance: alert, overweight Neurologic: oriented x 3, responsive, depressed affect Last 24 Hour Vital Signs Date Time Temp Pulse Resp B/P (MAP) Pulse Ox O2 Delivery O2 Flow Rate FiO2 04/19/18 09:04 61 148/64 (92) 04/19/18 09:03 68 156/74 (101) 04/19/18 09:00 165/79 04/19/18 09:00 70 165/79 04/19/18 09:00 Room Air 04/19/18 08:00 98.2 70 19 165/79 (107) 96 04/19/18 08:00 63 04/19/18 04:00 60 04/19/18 04:00 97.9 60 19 134/58 (83) 96 04/19/18 00:50 Room Air 04/19/18 00:40 97.3 61 18 149/70 99 Room Air 99 04/19/18 00:38 97.3 61 18 149/70 99 Room Air 04/19/18 00:30 98.2 71 19 165/72 (103) 97 04/18/18 22:21 97.3 67 20 156/72 99 Room Air 04/18/18 21:21 64 178/83 04/18/18 20:43 172/64 04/18/18 20:40 72 20 Room Air 99 04/18/18 20:40 97.3 75 20 199/98 99 Room Air 04/18/18 20:21 97.3 72 20 199/98 99 Room Air Intake and Output 04/18/18 04/19/18 19:00 07:00 Intake Total 120 ml Balance 120 ml Intake Oral 120 ml # Voids 1 Laboratory Tests Test 04/18/18 19:13 04/19/18 04:18 White Blood Count 7.6 K/UL (4.8-10.8) 7.2 K/UL (4.8-10.8) Red Blood Count 4.09 M/UL (4.70-6.10) L 4.21 M/UL (4.70-6.10) L Hemoglobin 11.7 G/DL (14.2-18.0) L 12.2 G/DL (14.2-18.0) L Hematocrit 35.3 % (42.0-52.0) L 36.4 % (42.0-52.0) L Mean Corpuscular Volume 86 FL (80-99) 86 FL (80-99) Mean Corpuscular Hemoglobin 28.5 PG (27.0-31.0) 29.1 PG (27.0-31.0) Mean Corpuscular Hemoglobin Concent 33.0 G/DL (32.0-36.0) 33.6 G/DL (32.0-36.0) Red Cell Distribution Width 12.2 % (11.6-14.8) 12.1 % (11.6-14.8) Platelet Count 96 K/UL (150-450) L 99 K/UL (150-450) L Mean Platelet Volume 9.7 FL (6.5-10.1) 9.3 FL (6.5-10.1) Neutrophils (%) (Auto) % (45.0-75.0) % (45.0-75.0) Lymphocytes (%) (Auto) % (20.0-45.0) % (20.0-45.0) Monocytes (%) (Auto) % (1.0-10.0) % (1.0-10.0) Eosinophils (%) (Auto) % (0.0-3.0) % (0.0-3.0) Basophils (%) (Auto) % (0.0-2.0) % (0.0-2.0) Differential Total Cells Counted 100 Neutrophils % (Manual) 69 % (45-75) Lymphocytes % (Manual) 16 % (20-45) L Monocytes % (Manual) 5 % (1-10) Eosinophils % (Manual) 10 % (0-3) H Basophils % (Manual) 0 % (0-2) Band Neutrophils 0 % (0-8) Platelet Estimate Decreased L Platelet Morphology Normal Red Blood Cell Morphology Normal Prothrombin Time 11.4 SEC (9.30-11.50) 11.4 SEC (9.30-11.50) Prothromb Time International Ratio 1.1 (0.9-1.1) 1.1 (0.9-1.1) Activated Partial Thromboplast Time 32 SEC (23-33) 30 SEC (23-33) Sodium Level 138 MMOL/L (136-145) Potassium Level 4.1 MMOL/L (3.5-5.1) Chloride Level 105 MMOL/L (98-107) Carbon Dioxide Level 24 MMOL/L (21-32) Anion Gap 9 mmol/L (5-15) Blood Urea Nitrogen 24 mg/dL (7-18) H Creatinine 1.3 MG/DL (0.55-1.30) Estimat Glomerular Filtration Rate mL/min (>60) Glucose Level 94 MG/DL (74-106) Calcium Level 9.0 MG/DL (8.5-10.1) Total Bilirubin 0.6 MG/DL (0.2-1.0) Aspartate Amino Transf (AST/SGOT) 16 U/L (15-37) Alanine Aminotransferase (ALT/SGPT) 16 U/L (12-78) Alkaline Phosphatase 44 U/L (46-116) L Total Creatine Kinase 79 U/L (26-308) Troponin I 0.024 ng/mL (0.000-0.056) 0.063 ng/mL (0.000-0.056) Pro-B-Type Natriuretic Peptide 716 pg/mL (0-125) H Total Protein 8.1 G/DL (6.4-8.2) Albumin 3.5 G/DL (3.4-5.0) Globulin 4.6 g/dL Albumin/Globulin Ratio 0.8 (1.0-2.7) L C-Reactive Protein, Quantitative 1.5 mg/dL (0.00-0.90) H Triglycerides Level 72 MG/DL (30-150) Cholesterol Level 115 MG/DL (< 200) LDL Cholesterol 71 mg/dL (<100) HDL Cholesterol 40 MG/DL (40-60) Cholesterol/HDL Ratio 2.9 (3.3-4.4) L Thyroid Stimulating Hormone (TSH) 4.121 uiU/mL (0.358-3.740) Height (Feet): 5 Height (Inches): 7.00 Weight (Pounds): 173 Medications Current Medications Medications (Trade) Dose Ordered Sig/Flash Route PRN Reason Start Time Stop Time Status Last Admin Dose Admin Acetaminophen (Tylenol) 650 mg Q4H PRN ORAL Mild Pain/Temp > 100.5 04/19/18 02:30 05/19/18 02:29 Albuterol/ Ipratropium (Albuterol/ Ipratropium) 3 ml Q4H PRN HHN Shortness of Breath 04/19/18 02:30 04/24/18 02:29 Apixaban (Eliquis) 2.5 mg BID ORAL 04/19/18 09:00 05/19/18 08:59 04/19/18 09:00 Aspirin (ASA) 162 mg DAILY ORAL 04/19/18 09:00 05/19/18 08:59 04/19/18 09:00 Carvedilol (Coreg) 6.25 mg EVERY 12 HOURS ORAL 04/19/18 09:00 05/19/18 08:59 04/19/18 09:00 Diltiazem HCl (Cardizem) 10 mg EVERY HOUR PRN IV heart rate more than 120, 04/18/18 22:30 05/18/18 22:29 Enalaprilat (Vasotec) 2.5 mg Q6H PRN IV sbp more than 160 04/19/18 01:45 05/18/18 22:29 Losartan Potassium (Cozaar) 100 mg DAILY ORAL 04/19/18 09:00 05/19/18 08:59 04/19/18 09:00 Morphine Sulfate (Morphine Sulfate) 2 mg Q4H PRN IVP For Pain 04/19/18 02:30 04/26/18 02:29 Nitroglycerin (Ntg) 0.4 mg Q5M PRN SL Prn Chest Pain 04/19/18 02:30 05/19/18 02:29 Ondansetron HCl (Zofran) 4 mg Q6H PRN IVP Nausea & Vomiting 04/19/18 02:30 05/19/18 02:29 Polyethylene Glycol (Miralax) 17 gm DAILY PRN ORAL Constipation 04/19/18 02:30 05/19/18 02:29 Pravastatin Sodium (Pravachol) 40 mg BEDTIME ORAL 04/19/18 21:00 05/19/18 20:59 Temazepam (Restoril) 15 mg HSPRN PRN ORAL Insomnia 04/19/18 02:30 04/26/18 02:29 Assessment/Plan Problem List: (1) anxiety disorder Status: stable Assessment/Plan Ativan prn provided ro/st Restoril prn Mame Desouza MD Apr 19, 2018 11:32
--- NOTE | 2018-04-19 12:48 | Consultation ---
History of Present Illness General Date patient seen: Apr 19, 2018 Chief Complaint: Chest Pain Present Illness HPI 87 year old male with hx of CAD, HTN, CABG, BPH and multiple stents, afib, pacemaker on , presented to ER with CC of exertional chest pressure. The pain today was 8/10 before paramedics were summoned. After aspirin and nitroglycerin the pain was reduced to 4/10. Over the last few days the chest pressure has been exertional and seems to have gotten worse with less exercise. Feels like when he had prior blockage and needed stents. Allergies: Coded Allergies: No Known Allergies (Unverified , 01/18/18) Medication History Scheduled Apixaban (Eliquis), 2.5 MG PO BID, (Reported) Apixaban (Eliquis), 2.5 MG PO DAILY, (Reported) Aspirin* (Aspir 81*), 81 MG ORAL DAILY, (Reported) Carvedilol (Coreg), 12.5 MG ORAL EVERY 12 HOURS, (Reported) Isosorbide Mononitrate (Isosorbide Mononitrate), 30 MG PO DAILY, (Reported) Losartan Potassium (Losartan Potassium), 100 MG ORAL DAILY, (Reported) Pravastatin Sodium (Pravachol), 40 MG ORAL BEDTIME, (Reported) Discontinued Medications Carvedilol* (Carvedilol*), Unknown Dose ORAL EVERY 12 HOURS, (Reported) Discontinued Reason: Medication dose changed Patient History Healthcare decision maker Resuscitation status Full Code Advanced Directive on File No Past Medical/Surgical History Past Medical/Surgical History: (1) Hx of CABG (2) Coronary stent patent (3) CAD (coronary artery disease) (4) Diabetes mellitus (5) Hypertension (6) Pacemaker (7) BPH (benign prostatic hyperplasia) (8) HTN (hypertension) Review of Systems All Other Systems: negative except mentioned in HPI Physical Exam General Appearance: WD/WN, no apparent distress Lines, tubes and drains: peripheral HEENT: normocephalic, atraumatic Neck: non-tender, normal alignment Respiratory/Chest: chest wall non-tender, lungs clear Breasts: no masses Cardiovascular/Chest: normal peripheral pulses Abdomen: normal bowel sounds, non tender Genitourinary/Rectal: normal genital exam Extremities: normal range of motion, non-tender Skin Exam: normal pigmentation Neurologic: head custodian II-XII grossly normal Last 24 Hour Vital Signs Date Time Temp Pulse Resp B/P (MAP) Pulse Ox O2 Delivery O2 Flow Rate FiO2 04/19/18 09:04 61 148/64 (92) 04/19/18 09:03 68 156/74 (101) 04/19/18 09:00 165/79 04/19/18 09:00 70 165/79 04/19/18 09:00 Room Air 04/19/18 08:00 98.2 70 19 165/79 (107) 96 04/19/18 08:00 63 04/19/18 04:00 60 04/19/18 04:00 97.9 60 19 134/58 (83) 96 04/19/18 00:50 Room Air 04/19/18 00:40 97.3 61 18 149/70 99 Room Air 99 04/19/18 00:38 97.3 61 18 149/70 99 Room Air 04/19/18 00:30 98.2 71 19 165/72 (103) 97 04/18/18 22:21 97.3 67 20 156/72 99 Room Air 04/18/18 21:21 64 178/83 04/18/18 20:43 172/64 04/18/18 20:40 72 20 Room Air 99 04/18/18 20:40 97.3 75 20 199/98 99 Room Air 04/18/18 20:21 97.3 72 20 199/98 99 Room Air Intake and Output 04/18/18 04/19/18 19:00 07:00 Intake Total 120 ml Balance 120 ml Intake Oral 120 ml # Voids 1 Laboratory Tests Test 04/18/18 19:13 04/19/18 04:18 04/19/18 11:50 White Blood Count 7.6 K/UL (4.8-10.8) 7.2 K/UL (4.8-10.8) Red Blood Count 4.09 M/UL (4.70-6.10) L 4.21 M/UL (4.70-6.10) L Hemoglobin 11.7 G/DL (14.2-18.0) L 12.2 G/DL (14.2-18.0) L Hematocrit 35.3 % (42.0-52.0) L 36.4 % (42.0-52.0) L Mean Corpuscular Volume 86 FL (80-99) 86 FL (80-99) Mean Corpuscular Hemoglobin 28.5 PG (27.0-31.0) 29.1 PG (27.0-31.0) Mean Corpuscular Hemoglobin Concent 33.0 G/DL (32.0-36.0) 33.6 G/DL (32.0-36.0) Red Cell Distribution Width 12.2 % (11.6-14.8) 12.1 % (11.6-14.8) Platelet Count 96 K/UL (150-450) L 99 K/UL (150-450) L Mean Platelet Volume 9.7 FL (6.5-10.1) 9.3 FL (6.5-10.1) Neutrophils (%) (Auto) % (45.0-75.0) % (45.0-75.0) Lymphocytes (%) (Auto) % (20.0-45.0) % (20.0-45.0) Monocytes (%) (Auto) % (1.0-10.0) % (1.0-10.0) Eosinophils (%) (Auto) % (0.0-3.0) % (0.0-3.0) Basophils (%) (Auto) % (0.0-2.0) % (0.0-2.0) Differential Total Cells Counted 100 Neutrophils % (Manual) 69 % (45-75) Lymphocytes % (Manual) 16 % (20-45) L Monocytes % (Manual) 5 % (1-10) Eosinophils % (Manual) 10 % (0-3) H Basophils % (Manual) 0 % (0-2) Band Neutrophils 0 % (0-8) Platelet Estimate Decreased L Platelet Morphology Normal Red Blood Cell Morphology Normal Prothrombin Time 11.4 SEC (9.30-11.50) 11.4 SEC (9.30-11.50) Prothromb Time International Ratio 1.1 (0.9-1.1) 1.1 (0.9-1.1) Activated Partial Thromboplast Time 32 SEC (23-33) 30 SEC (23-33) Sodium Level 138 MMOL/L (136-145) Potassium Level 4.1 MMOL/L (3.5-5.1) Chloride Level 105 MMOL/L (98-107) Carbon Dioxide Level 24 MMOL/L (21-32) Anion Gap 9 mmol/L (5-15) Blood Urea Nitrogen 24 mg/dL (7-18) H Creatinine 1.3 MG/DL (0.55-1.30) Estimat Glomerular Filtration Rate mL/min (>60) Glucose Level 94 MG/DL (74-106) Calcium Level 9.0 MG/DL (8.5-10.1) Total Bilirubin 0.6 MG/DL (0.2-1.0) Aspartate Amino Transf (AST/SGOT) 16 U/L (15-37) Alanine Aminotransferase (ALT/SGPT) 16 U/L (12-78) Alkaline Phosphatase 44 U/L (46-116) L Total Creatine Kinase 79 U/L (26-308) Troponin I 0.024 ng/mL (0.000-0.056) 0.063 ng/mL (0.000-0.056) 0.045 ng/mL (0.000-0.056) Pro-B-Type Natriuretic Peptide 716 pg/mL (0-125) H Total Protein 8.1 G/DL (6.4-8.2) Albumin 3.5 G/DL (3.4-5.0) Globulin 4.6 g/dL Albumin/Globulin Ratio 0.8 (1.0-2.7) L C-Reactive Protein, Quantitative 1.5 mg/dL (0.00-0.90) H Triglycerides Level 72 MG/DL (30-150) Cholesterol Level 115 MG/DL (< 200) LDL Cholesterol 71 mg/dL (<100) HDL Cholesterol 40 MG/DL (40-60) Cholesterol/HDL Ratio 2.9 (3.3-4.4) L Thyroid Stimulating Hormone (TSH) 4.121 uiU/mL (0.358-3.740) Height (Feet): 5 Height (Inches): 7.00 Weight (Pounds): 173 Medications Current Medications Medications (Trade) Dose Ordered Sig/Flash Route PRN Reason Start Time Stop Time Status Last Admin Dose Admin Acetaminophen (Tylenol) 650 mg Q4H PRN ORAL Mild Pain/Temp > 100.5 04/19/18 02:30 05/19/18 02:29 Albuterol/ Ipratropium (Albuterol/ Ipratropium) 3 ml Q4H PRN HHN Shortness of Breath 04/19/18 02:30 04/24/18 02:29 Apixaban (Eliquis) 2.5 mg BID ORAL 04/19/18 09:00 05/19/18 08:59 04/19/18 09:00 Aspirin (ASA) 162 mg DAILY ORAL 04/19/18 09:00 05/19/18 08:59 04/19/18 09:00 Carvedilol (Coreg) 6.25 mg EVERY 12 HOURS ORAL 04/19/18 09:00 05/19/18 08:59 04/19/18 09:00 Diltiazem HCl (Cardizem) 10 mg EVERY HOUR PRN IV heart rate more than 120, 04/18/18 22:30 05/18/18 22:29 Enalaprilat (Vasotec) 2.5 mg Q6H PRN IV sbp more than 160 04/19/18 01:45 05/18/18 22:29 Losartan Potassium (Cozaar) 100 mg DAILY ORAL 04/19/18 09:00 05/19/18 08:59 04/19/18 09:00 Morphine Sulfate (Morphine Sulfate) 2 mg Q4H PRN IVP For Pain 04/19/18 02:30 04/26/18 02:29 Nitroglycerin (Ntg) 0.4 mg Q5M PRN SL Prn Chest Pain 04/19/18 02:30 05/19/18 02:29 Ondansetron HCl (Zofran) 4 mg Q6H PRN IVP Nausea & Vomiting 04/19/18 02:30 05/19/18 02:29 Polyethylene Glycol (Miralax) 17 gm DAILY PRN ORAL Constipation 04/19/18 02:30 05/19/18 02:29 Pravastatin Sodium (Pravachol) 40 mg BEDTIME ORAL 04/19/18 21:00 05/19/18 20:59 Temazepam (Restoril) 15 mg HSPRN PRN ORAL Insomnia 04/19/18 02:30 04/26/18 02:29 Assessment/Plan Problem List: (1) Hypertensive emergency ICD Codes: I16.1 - Hypertensive emergency SNOMED: 550058461505235 (2) ACS (acute coronary syndrome) ICD Codes: I24.9 - Acute ischemic heart disease, unspecified SNOMED: 593433644 (3) Coronary stent patent ICD Codes: Z95.5 - Presence of coronary angioplasty implant and graft SNOMED: 771795777 (4) CAD (coronary artery disease) ICD Codes: I25.10 - Atherosclerotic heart disease of [place] coronary artery without angina pectoris SNOMED: 25883176 (5) Diabetes mellitus ICD Codes: E11.9 - Type 2 diabetes mellitus without complications SNOMED: 55116406 (6) Hypertension ICD Codes: I10 - Essential (primary) hypertension SNOMED: 06767914 (7) Pacemaker ICD Codes: Z95.0 - Presence of cardiac pacemaker SNOMED: 386452954 (8) Hx of CABG ICD Codes: Z95.1 - Presence of aortocoronary bypass graft SNOMED: 572872005, 462371181 Assessment/Plan serial ekg, troponin, echo monitor BP sliding scale symptomatic treatment dvt prophylaxis. Sami Avila MD Apr 19, 2018 12:48
--- NOTE | 2018-04-19 13:47 | Diagnostic Imaging Report ---
Indication: Chest pain Comparison: 01/19/2018 A single view chest radiograph was obtained. Findings: There is no change. Heart is borderline enlarged. Pulmonary vascularity is mildly prominent without definite CHF. Sternotomy again noted. Left-sided pacemaker noted. IMPRESSION: No change. No acute findings
--- NOTE | 2018-04-19 15:29 | Cardiology Report ---
APPROVED REPORT EXAM: Two-dimensional and M-mode echocardiogram with Doppler and color Doppler. INDICATION Chest Pain M-Mode DIMENSIONS IVSd1.6 (0.7-1.1cm)Left Atrium (MM)3.5 (1.6-4.0cm) LVDd4.6 (3.5-5.6cm)Aortic Root3.5 (2.0-3.7cm) PWd0.9 (0.7-1.1cm)Aortic Cusp Exc.1.8 (1.5-2.0cm) LVDs3.8 (2.5-4.0cm) PWs1.4 cm Normal left ventricular chamber size. Global left ventricular hypokinesis with flor-septal dyskinesis. Left ventricular ejection fraction estimated to be 35-40 %. Mild left ventricular hypertrophy. Anterior Echo-free space, may be due to pericardial fat or effusion. All other cardiac chamber sizes are within normal limits. Focal aortic valve sclerosis with adequate cusp excursion. Thickened mitral valve leaflets with normal excursion. Mild mitral annulus and aortic root calcification. Normal pulmonic valve structure. Normal tricuspid valve structure. IVC dilated at 2.2 cm with physiological collapse, suggestive of increased RA pressure. Probable pacemaker wire present in the right side chambers. A color flow and spectral Doppler study was performed and revealed: Moderate aortic insufficiency. Mild to moderate mitral regurgitation. Normal left ventricular diastolic function. Mild tricuspid regurgitation. Tricuspid systolic velocities suggests peak right ventricular systolic pressure of 46 mmHg, consistent with moderate pulmonary hypertension. Moderate pulmonic regurgitation present.
--- NOTE | 2018-04-19 16:04 | Cardiology Report ---
APPROVED REPORT EKG Measurement Heart [id number] Abnormal ECG Electronic pacemaker
--- NOTE | 2018-04-19 16:38 | Internal Med Progress Note ---
Subjective Physician Name Alex Dickey Attending Physician Alex Dickey MD Current Medications Medications (Trade) Dose Ordered Sig/Flash Route PRN Reason Start Time Stop Time Status Last Admin Dose Admin Acetaminophen (Tylenol) 650 mg Q4H PRN ORAL Mild Pain/Temp > 100.5 04/19/18 02:30 05/19/18 02:29 Albuterol/ Ipratropium (Albuterol/ Ipratropium) 3 ml Q4H PRN HHN Shortness of Breath 04/19/18 02:30 04/24/18 02:29 Apixaban (Eliquis) 2.5 mg BID ORAL 04/19/18 09:00 05/19/18 08:59 04/19/18 09:00 Aspirin (ASA) 162 mg DAILY ORAL 04/19/18 09:00 05/19/18 08:59 04/19/18 09:00 Carvedilol (Coreg) 6.25 mg EVERY 12 HOURS ORAL 04/19/18 09:00 05/19/18 08:59 04/19/18 09:00 Diltiazem HCl (Cardizem) 10 mg EVERY HOUR PRN IV heart rate more than 120, 04/18/18 22:30 05/18/18 22:29 Enalaprilat (Vasotec) 2.5 mg Q6H PRN IV sbp more than 160 04/19/18 01:45 05/18/18 22:29 Losartan Potassium (Cozaar) 100 mg DAILY ORAL 04/19/18 09:00 05/19/18 08:59 04/19/18 09:00 Morphine Sulfate (Morphine Sulfate) 2 mg Q4H PRN IVP For Pain 04/19/18 02:30 04/26/18 02:29 Nitroglycerin (Ntg) 0.4 mg Q5M PRN SL Prn Chest Pain 04/19/18 02:30 05/19/18 02:29 Ondansetron HCl (Zofran) 4 mg Q6H PRN IVP Nausea & Vomiting 04/19/18 02:30 05/19/18 02:29 Polyethylene Glycol (Miralax) 17 gm DAILY PRN ORAL Constipation 04/19/18 02:30 05/19/18 02:29 Pravastatin Sodium (Pravachol) 40 mg BEDTIME ORAL 04/19/18 21:00 05/19/18 20:59 Temazepam (Restoril) 15 mg HSPRN PRN ORAL Insomnia 04/19/18 02:30 04/26/18 02:29 Allergies: Coded Allergies: No Known Allergies (Unverified , 01/18/18) Subjective awake, alert, responsive, No chest pain or SOB, C/O Constipation Objective Last Vital Signs Date Time Temp Pulse Resp B/P (MAP) Pulse Ox O2 Delivery O2 Flow Rate FiO2 04/19/18 16:00 97.3 67 20 134/68 (90) 95 04/19/18 09:00 Room Air 04/19/18 00:40 99 Laboratory Tests Test 04/18/18 19:13 04/19/18 04:18 04/19/18 11:50 White Blood Count 7.6 K/UL (4.8-10.8) 7.2 K/UL (4.8-10.8) Red Blood Count 4.09 M/UL (4.70-6.10) L 4.21 M/UL (4.70-6.10) L Hemoglobin 11.7 G/DL (14.2-18.0) L 12.2 G/DL (14.2-18.0) L Hematocrit 35.3 % (42.0-52.0) L 36.4 % (42.0-52.0) L Mean Corpuscular Volume 86 FL (80-99) 86 FL (80-99) Mean Corpuscular Hemoglobin 28.5 PG (27.0-31.0) 29.1 PG (27.0-31.0) Mean Corpuscular Hemoglobin Concent 33.0 G/DL (32.0-36.0) 33.6 G/DL (32.0-36.0) Red Cell Distribution Width 12.2 % (11.6-14.8) 12.1 % (11.6-14.8) Platelet Count 96 K/UL (150-450) L 99 K/UL (150-450) L Mean Platelet Volume 9.7 FL (6.5-10.1) 9.3 FL (6.5-10.1) Neutrophils (%) (Auto) % (45.0-75.0) % (45.0-75.0) Lymphocytes (%) (Auto) % (20.0-45.0) % (20.0-45.0) Monocytes (%) (Auto) % (1.0-10.0) % (1.0-10.0) Eosinophils (%) (Auto) % (0.0-3.0) % (0.0-3.0) Basophils (%) (Auto) % (0.0-2.0) % (0.0-2.0) Differential Total Cells Counted 100 Neutrophils % (Manual) 69 % (45-75) Lymphocytes % (Manual) 16 % (20-45) L Monocytes % (Manual) 5 % (1-10) Eosinophils % (Manual) 10 % (0-3) H Basophils % (Manual) 0 % (0-2) Band Neutrophils 0 % (0-8) Platelet Estimate Decreased L Platelet Morphology Normal Red Blood Cell Morphology Normal Prothrombin Time 11.4 SEC (9.30-11.50) 11.4 SEC (9.30-11.50) Prothromb Time International Ratio 1.1 (0.9-1.1) 1.1 (0.9-1.1) Activated Partial Thromboplast Time 32 SEC (23-33) 30 SEC (23-33) Sodium Level 138 MMOL/L (136-145) Potassium Level 4.1 MMOL/L (3.5-5.1) Chloride Level 105 MMOL/L (98-107) Carbon Dioxide Level 24 MMOL/L (21-32) Anion Gap 9 mmol/L (5-15) Blood Urea Nitrogen 24 mg/dL (7-18) H Creatinine 1.3 MG/DL (0.55-1.30) Estimat Glomerular Filtration Rate mL/min (>60) Glucose Level 94 MG/DL (74-106) Calcium Level 9.0 MG/DL (8.5-10.1) Total Bilirubin 0.6 MG/DL (0.2-1.0) Aspartate Amino Transf (AST/SGOT) 16 U/L (15-37) Alanine Aminotransferase (ALT/SGPT) 16 U/L (12-78) Alkaline Phosphatase 44 U/L (46-116) L Total Creatine Kinase 79 U/L (26-308) Troponin I 0.024 ng/mL (0.000-0.056) 0.063 ng/mL (0.000-0.056) 0.045 ng/mL (0.000-0.056) Pro-B-Type Natriuretic Peptide 716 pg/mL (0-125) H Total Protein 8.1 G/DL (6.4-8.2) Albumin 3.5 G/DL (3.4-5.0) Globulin 4.6 g/dL Albumin/Globulin Ratio 0.8 (1.0-2.7) L C-Reactive Protein, Quantitative 1.5 mg/dL (0.00-0.90) H Triglycerides Level 72 MG/DL (30-150) Cholesterol Level 115 MG/DL (< 200) LDL Cholesterol 71 mg/dL (<100) HDL Cholesterol 40 MG/DL (40-60) Cholesterol/HDL Ratio 2.9 (3.3-4.4) L Thyroid Stimulating Hormone (TSH) 4.121 uiU/mL (0.358-3.740) Free Thyroxine 0.92 NG/DL (0.76-1.46) Free Triiodothyronine 2.6 pg/mL (2.3-4.2) Intake and Output 04/18/18 04/19/18 19:00 07:00 Intake Total 120 ml Balance 120 ml Intake Oral 120 ml # Voids 1 Objective GENERAL: The patient is awake and responsive, in no acute distress. HEAD AND NECK: Pupils are equal and reactive to light. Extraocular movements are intact. Neck was supple. No JVD. LUNGS: Good air entry. No wheezing or rales. HEART: S1 and S2. Distant heart sounds. Irregular. Pacemaker in the left- sided chest wall. ABDOMEN: Soft, nondistended, and nontender. Positive bowel sounds. EXTREMITIES: No cyanosis, clubbing, or edema. NEUROLOGIC: Cranial nerves II through XII are grossly intact. Motor is 5/5 in all extremities. Gait is intact. RECTAL: Refused and deferred. GENITOURINARY: Refused and deferred. PSYCHIATRIC: Mood and affect are intact. Assessment/Plan Assessment/Plan ASSESSMENT: 1. Chest pain, possibly due to elevated blood pressure; rule out acute coronary syndrome. 2. Hypertensive Emergence, 3. History of atrial fibrillation, status post flutter ablation. 4. Chronic kidney disease, stage 3. 5. Thrombocytopenia with history of ITP. 6. Dyslipidemia. 7. Congestive heart failure, chronic. 8. Coronary artery disease, status post CABG and PTCA with stent. 9. Chronic constipation PLAN: In telemetry. monitor aboratory and Monitor blood pressure closely. Discussed the case with Dr. Avila from Pulmonary Critical Care. Follow up with Cardiology, Dr. Maira Aguero Code status is Full Code. DVT prophylaxis, Eliquis. Start on Miralax PRN DC planning for AM.. Alex Dickey M.D. Alex Dickey MD Apr 19, 2018 16:38
--- NOTE | 2018-04-19 19:40 | Cardiology Progress Note ---
Assessment/Plan Assessment/Plan ekg non diagnostic paced 2n trop min abm the first and 3rd noremal depsite juan had cp for a few day pt bp seem fine watch as on eliquis and hs of itp he maybe albe to fu with dr brenner to have mpi at [facility] where he wishes to have it done [id number] Objective Last 24 Hour Vital Signs Date Time Temp Pulse Resp B/P (MAP) Pulse Ox O2 Delivery O2 Flow Rate FiO2 04/19/18 16:00 63 04/19/18 16:00 97.3 67 20 134/68 (90) 95 04/19/18 12:00 97.7 63 20 147/60 (89) 96 04/19/18 12:00 65 04/19/18 09:04 61 148/64 (92) 04/19/18 09:03 68 156/74 (101) 04/19/18 09:00 165/79 04/19/18 09:00 70 165/79 04/19/18 09:00 Room Air 04/19/18 08:00 98.2 70 19 165/79 (107) 96 04/19/18 08:00 63 04/19/18 04:00 60 04/19/18 04:00 97.9 60 19 134/58 (83) 96 04/19/18 00:50 Room Air 04/19/18 00:40 97.3 61 18 149/70 99 Room Air 99 04/19/18 00:38 97.3 61 18 149/70 99 Room Air 04/19/18 00:30 98.2 71 19 165/72 (103) 97 04/18/18 22:21 97.3 67 20 156/72 99 Room Air 04/18/18 21:21 64 178/83 04/18/18 20:43 172/64 04/18/18 20:40 72 20 Room Air 99 04/18/18 20:40 97.3 75 20 199/98 99 Room Air 04/18/18 20:21 97.3 72 20 199/98 99 Room Air Intake and Output 04/18/18 04/19/18 19:00 07:00 Intake Total 120 ml Balance 120 ml Intake Oral 120 ml # Voids 1 Laboratory Tests Test 04/19/18 04:18 04/19/18 11:50 White Blood Count 7.2 K/UL (4.8-10.8) Red Blood Count 4.21 M/UL (4.70-6.10) L Hemoglobin 12.2 G/DL (14.2-18.0) L Hematocrit 36.4 % (42.0-52.0) L Mean Corpuscular Volume 86 FL (80-99) Mean Corpuscular Hemoglobin 29.1 PG (27.0-31.0) Mean Corpuscular Hemoglobin Concent 33.6 G/DL (32.0-36.0) Red Cell Distribution Width 12.1 % (11.6-14.8) Platelet Count 99 K/UL (150-450) L Mean Platelet Volume 9.3 FL (6.5-10.1) Neutrophils (%) (Auto) % (45.0-75.0) Lymphocytes (%) (Auto) % (20.0-45.0) Monocytes (%) (Auto) % (1.0-10.0) Eosinophils (%) (Auto) % (0.0-3.0) Basophils (%) (Auto) % (0.0-2.0) Prothrombin Time 11.4 SEC (9.30-11.50) Prothromb Time International Ratio 1.1 (0.9-1.1) Activated Partial Thromboplast Time 30 SEC (23-33) Troponin I 0.063 ng/mL (0.000-0.056) 0.045 ng/mL (0.000-0.056) C-Reactive Protein, Quantitative 1.5 mg/dL (0.00-0.90) H Triglycerides Level 72 MG/DL (30-150) Cholesterol Level 115 MG/DL (< 200) LDL Cholesterol 71 mg/dL (<100) HDL Cholesterol 40 MG/DL (40-60) Cholesterol/HDL Ratio 2.9 (3.3-4.4) L Thyroid Stimulating Hormone (TSH) 4.121 uiU/mL (0.358-3.740) Free Thyroxine 0.92 NG/DL (0.76-1.46) Free Triiodothyronine 2.6 pg/mL (2.3-4.2) Santiago Magdaleno MD Apr 19, 2018 19:40
[2018-04-19] MEDS: Carvedilol 12.5mg tab ORAL SCH (21:00)
[2018-04-20] VITALS: BP 148/69
--- NOTE | 2018-04-20 03:45 | Consultation ---
DATE OF CONSULTATION: 04/19/2018 CARDIAC CONSULTATION CONSULTING PHYSICIAN: Santiago Magdaleno M.D. REFERRING PHYSICIAN: Alex Dickey M.D. REASON FOR REFERRAL: Chest pain. HISTORY OF PRESENT ILLNESS: This is an elderly gentleman who is known to me. The patient is usually followed by Dr. Trujillo over at [facility]. The patient was last admitted here in January when he had some bouts of bradycardia, had a pacemaker implantation by Dr. Aguero, and subsequently was discharged home. He presented to the hospital at this time because of episodes of elevated blood pressure readings. He has noticed that when his blood pressure is elevated, he has some tightness sensation in his chest, different than what he calls as anginal pain previously. He really does not have any PND or orthopnea. He does feel that these episodes of tightness occur when he is doing some kind of activity, but they are specifically different than an anginal pain. In fact, a few days ago, he moved some speakers about 30 pounds each and afterwards he got shortness of breath and tightness in his chest as well. He does not recall the last time he has had a stress test at Dr. Trujillo's office. He does not have any PND or orthopnea. He has no heart pounding or palpitation at this time, although he has had that before. He does have exertional shortness of breath as well. PAST MEDICAL HISTORY: Positive for a history of coronary artery disease, stented arteries; he has had elevated PSA; cataracts, status post right eye blind; history of cat bite, exertional angina; sepsis; paroxysmal episodes of atrial fibrillation; history of acute kidney disease; hyponatremia; congestive heart failure; chronic ITP; history of non ST-elevation myocardial infarction; acute on chronic heart failure; history of atrial flutter; history of chronic kidney disease, stage 3; bypass surgery on two separate occasions; stent placement; and cataract surgery. ALLERGIES: None. SOCIAL HISTORY: Does not smoke. He drinks only on rare occasions. He used to be in [email or web address]. He lives at home with his family. REVIEW OF SYSTEMS: GASTROINTESTINAL: He denies any nausea, vomiting, or diarrhea. He does have a history of constipation. GENITOURINARY: He denies any blood, burning, or foul-smelling urine. He has been seen by his urologist recently. CONSTITUTIONAL: Negative. NEUROLOGICAL: Negative. PHYSICAL EXAMINATION: GENERAL: Shows to be an elderly gentleman, in no respiratory distress. NECK: Supple. No jugular venous distention. No abdominojugular reflux noted. LUNGS: Clear to auscultation and percussion. CARDIAC: S1 is normal. S2 is normal. Regular rate and rhythm. Holosystolic regurgitant murmur is noted. ABDOMEN: Soft and nontender. Positive bowel sounds. EXTREMITIES: There is no clubbing, cyanosis, nor edema. NEUROLOGICAL: He is awake, alert, and responsive. He has actually been walking in the halls prior to my arrival in his room. LABORATORY AND DIAGNOSTIC DATA: His white count 7.2, hemoglobin 12.2, and platelet count of 99,000, it was as low as 76,000 during the last hospitalization previously. His troponin of 0.024, went up to 0.63 and subsequently 0.45. His TSH is 4.1. His sodium 138, potassium 4.1, chloride 105, bicarbonate 24, BUN of 24, creatinine 1.3, and glucose of 94. Liver function tests are normal. ProBNP is only 716. Coags, INR 1.1 and PTT of 23. His echocardiogram performed today is interpreted as showing a global hypokinesis with anteroseptal dyskinesis. Left ventricular ejection fraction 35% to 40%. Moderate aortic regurgitation and mild to moderate mitral regurgitation was noted. He has pulmonary artery systolic pressure of 46, and in direct comparison with his echocardiogram that he had in January of this year, his ejection fraction was not able to be evaluated last time. There is AV sequential pacing or ventricular pacing intermittently. His electrocardiogram basically V-paced rhythm and uninterpretable otherwise. ASSESSMENT AND PLAN: 1. Chest pain. 2. Coronary artery disease, status post prior coronary artery bypass grafting. 3. Probable sick sinus syndrome, status post permanent pacemaker implantation. 4. Bundle-branch conduction defect. 5. Ischemic cardiomyopathy. 6. Chronic ITP. 7. Chronic congestive heart failure. 8. Chronic renal insufficiency. 9. Paroxysmal episodes of atrial fibrillation. 10. Atrial flutter, status post ablation. 11. Coronary artery disease as mentioned above. Dr. Dickey, this patient was seen in cardiac consultation. The patient does have some exertional chest pain, but he seems to think this is not his angina, although he does seem to experience it with activity. He has been walking around the [place], but he has not had any significant issues. His troponin was minimally abnormal on one occasion. The other two were rather fine. He has had this discomfort going on for the past few days and his troponin at the time of his initial presentation to the hospital was completely normal. His EKG is uninterpretable because of pacing artifact. He would like to go home and be evaluated by his primary assembler watch train, Dr. Trujillo. I think it will be reasonable to do that as he is walking in the halls here without any discomfort. He is known to have chronic exertional chest pains according to [facility] records I believe. We will see how he does by tomorrow. If he is able to ambulate, he wants to go home and he should be able to follow up with Dr. Trujillo. At the present time, his blood pressure reading, the main issue that caused him to be in the hospital, appeared to be much better. The most recent blood pressure 134/68. His medications have included Eliquis. He is being given some aspirin, which we need to be careful in light of the fact that he has had ITP and low platelet count and losartan to be continued as he has been getting and statins to be continued as well. Santiago Magdaleno M.D. DR: NEW JOB#: [id number] CC:
--- NOTE | 2018-04-20 07:12 | Pulmonology Progress Note ---
Assessment/Plan Assessment/Plan ASSESSMENT CP, possibly due to uncontrolled BP vs exertional angina Elevated troponin -resolved ischemic cardiomyopathy (EF 35-40%) HTN urgency CAD with hx of CABG and PTCA A fib Chronic CHF Dyslipidemia CKD st 3 Thrombocytopenia with hx of ITP PLAN OF CARE tele troponin only one minimally elevated, rest normal cardio follows BP management with BB and ARB and optimize further as needed On ASA and statin , lipid panel stable , a/coagulation with Eliquis PLT count stable, watch clsoely in lieyu of hx of ITP pain management, Nitro prn a/failure regimen with BB and ARB O2, HHN prn monitor renal parameters, lytes, correct prn, avoid nephrotoxic TSH elevated , free T4 and T3 WNL; recheck TSH in 4 wks PT eval and Rx outpt fup with him director dr Thompson at [facility] case discussed and evaluated by supervising physician Subjective Allergies: Coded Allergies: No Known Allergies (Unverified , 01/18/18) Subjective denies chest pain, SOB BP better PLT up to 103 Objective Last 24 Hour Vital Signs Date Time Temp Pulse Resp B/P (MAP) Pulse Ox O2 Delivery O2 Flow Rate FiO2 04/20/18 04:00 61 04/20/18 04:00 61 04/20/18 00:00 97.6 63 18 148/69 (95) 97 04/20/18 00:00 63 04/19/18 21:13 65 04/19/18 21:00 70 134/68 04/19/18 21:00 Room Air 04/19/18 20:58 134/68 04/19/18 20:18 66 18 Room Air 21 04/19/18 20:00 97.4 69 20 162/71 (101) 04/19/18 16:00 63 04/19/18 16:00 97.3 67 20 134/68 (90) 95 04/19/18 12:00 97.7 63 20 147/60 (89) 96 04/19/18 12:00 65 04/19/18 09:04 61 148/64 (92) 04/19/18 09:03 68 156/74 (101) 04/19/18 09:00 165/79 04/19/18 09:00 70 165/79 04/19/18 09:00 Room Air 04/19/18 08:00 98.2 70 19 165/79 (107) 96 04/19/18 08:00 63 Intake and Output 04/19/18 04/20/18 19:00 07:00 Intake Total 720 ml Balance 720 ml Intake Oral 720 ml # Voids 3 2 # Bowel Movements 1 General Appearance: no acute distress HEENT: normocephalic, atraumatic, anicteric, mucous membranes moist Respiratory/Chest: lungs clear, no respiratory distress, no accessory muscle use, other - left chest pacemaker Cardiovascular: normal rate, regular rhythm - Paced rhythm Abdomen: soft, non tender, non distended Extremities: no edema, pedal pulses normal Neurologic/Psychiatric: no motor/sensory deficits, alert, oriented x 3, responsive Musculoskeletal: other - ambulates with cane Laboratory Tests 04/19/18 11:50: Troponin I 0.045, Free Thyroxine 0.92, Free Triiodothyronine 2.6 Current Medications Medications (Trade) Dose Ordered Sig/Flash Route PRN Reason Start Time Stop Time Status Last Admin Dose Admin Acetaminophen (Tylenol) 650 mg Q4H PRN ORAL Mild Pain/Temp > 100.5 04/19/18 02:30 05/19/18 02:29 Albuterol/ Ipratropium (Albuterol/ Ipratropium) 3 ml Q4H PRN HHN Shortness of Breath 04/19/18 02:30 04/24/18 02:29 Apixaban (Eliquis) 2.5 mg BID ORAL 04/19/18 09:00 05/19/18 08:59 04/19/18 18:56 Aspirin (ASA) 81 mg DAILY ORAL 04/20/18 09:00 05/20/18 08:59 Carvedilol (Coreg) 12.5 mg EVERY 12 HOURS ORAL 04/19/18 21:00 05/19/18 20:59 04/19/18 21:00 Diltiazem HCl (Cardizem) 10 mg EVERY HOUR PRN IV heart rate more than 120, 04/18/18 22:30 05/18/18 22:29 Enalaprilat (Vasotec) 2.5 mg Q6H PRN IV sbp more than 160 04/19/18 01:45 05/18/18 22:29 Losartan Potassium (Cozaar) 50 mg QHS ORAL 04/19/18 21:00 05/19/18 20:59 12/14/18 20:58 Losartan Potassium (Cozaar) 100 mg DAILY ORAL 04/19/18 09:00 05/19/18 08:59 04/19/18 09:00 Morphine Sulfate (Morphine Sulfate) 2 mg Q4H PRN IVP For Pain 04/19/18 02:30 04/26/18 02:29 Nitroglycerin (Ntg) 0.4 mg Q5M PRN SL Prn Chest Pain 04/19/18 02:30 05/19/18 02:29 Ondansetron HCl (Zofran) 4 mg Q6H PRN IVP Nausea & Vomiting 04/19/18 02:30 05/19/18 02:29 Polyethylene Glycol (Miralax) 17 gm DAILY PRN ORAL Constipation 04/19/18 02:30 05/19/18 02:29 04/19/18 21:07 Polyethylene Glycol (Miralax) 17 gm DAILY PRN ORAL Constipation 04/19/18 16:45 05/19/18 16:44 Pravastatin Sodium (Pravachol) 40 mg BEDTIME ORAL 04/19/18 21:00 05/19/18 20:59 04/19/18 20:57 Temazepam (Restoril) 15 mg HSPRN PRN ORAL Insomnia 04/19/18 02:30 04/26/18 02:29 Radha Rob NP Apr 20, 2018 07:12
[2018-04-20 08:00] VITALS: BP 105/72
[2018-04-20 08:14] LABS: ALANINE AMINOTRANSFERASE 13 U/L (12-78); ALBUMIN 3.3 G/DL (3.4-5.0); ALBUMIN/GLOBULIN RATIO 0.8 (1.0-2.7); ALKALINE PHOSPHATASE 43 U/L (46-116); ANION GAP 6 mmol/L (5-15); ASPARTATE AMINO TRANSFERASE 18 U/L (15-37); BILIRUBIN,TOTAL 0.7 MG/DL (0.2-1.0); BLOOD UREA NITROGEN 22 mg/dL (7-18); CALCIUM 8.9 MG/DL (8.5-10.1); CARBON DIOXIDE 28 MMOL/L (21-32); CHLORIDE 106 MMOL/L (98-107); CREATININE 1.3 MG/DL (0.55-1.30); PHOSPHORUS 3.5 MG/DL (2.5-4.9); POTASSIUM 4.3 MMOL/L (3.5-5.1); SODIUM 140 MMOL/L (136-145)
[2018-04-20 08:23] LABS: EOSINOPHILS % (AUTO) 7.1 % (0.0-3.0); HEMATOCRIT 36.3 % (42.0-52.0); LYMPHOCYTES % (AUTO) 17.2 % (20.0-45.0); MEAN CORPUSCULAR VOLUME 87 FL (80-99); MONOCYTES % (AUTO) 16.7 % (1.0-10.0); NEUTROPHILS % (AUTO) 58.1 % (45.0-75.0); PLATELET COUNT 103 K/UL (150-450); RED BLOOD COUNT 4.18 M/UL (4.70-6.10); RED CELL DISTRIBUTION WIDTH 12.1 % (11.6-14.8); WHITE BLOOD COUNT 6.9 K/UL (4.8-10.8)
[2018-04-20] MEDS ORDERED: Aspirin Baby 81mg ORAL SCH (09:00)
[2018-04-20] MEDS: Eliquis 2.5mg tablet ORAL SCH (09:21)
[2018-04-20] MEDS: Losartan 50mg tab ORAL SCH (09:22)
[2018-04-20] MEDS: Carvedilol 12.5mg tab ORAL SCH (09:23)
[2018-04-20 12:00] VITALS: BP 140/60
--- NOTE | 2018-04-20 13:19 | Cardiology Progress Note ---
Assessment/Plan Assessment/Plan 1. Chest pain c/w exertional angina 2. Coronary artery disease, status post prior coronary artery bypass grafting. 3. Probable sick sinus syndrome, status post permanent pacemaker implantation. 4. Bundle-branch conduction defect. 5. Ischemic cardiomyopathy. 6. Chronic ITP. 7. Chronic congestive heart failure. 8. Chronic renal insufficiency. 9. Paroxysmal episodes of atrial fibrillation. 10. Atrial flutter, status post ablation. await trop from to day if neg then as pt would like he can be discharged home i have a message form dr brenner to call [facility] message left for him to discuss pt probably will need ischmei evaluation he would like to have doena t c[place]ars whichis reasonable he has no rest pain keep on leiquis adn los dose asa hism bp med have been adjsuted in setting in icm losartan can be increased to150 mg dialy which seem so far to be effective toherwise he will need meds adjsuted by dr brenner he is walking in the halls withour any pain today and he looks comfortable his echo interpreted as showeing swma will discuss that with dr brenner when he contacts me Subjective Cardiovascular: Denies: chest pain - walking in [place] , lightheadedness, palpitations Respiratory: Denies: shortness of breath Gastrointestinal/Abdominal: Denies: abdominal pain Genitourinary: Denies: burning Objective Last 24 Hour Vital Signs Date Time Temp Pulse Resp B/P (MAP) Pulse Ox O2 Delivery O2 Flow Rate FiO2 04/20/18 12:00 96.8 69 18 140/60 (86) 95 04/20/18 10:09 69 18 Room Air 21 04/20/18 09:23 74 144/71 04/20/18 09:22 144/71 04/20/18 09:00 Room Air 04/20/18 08:00 96.6 63 17 105/72 (83) 95 04/20/18 04:00 61 04/20/18 04:00 61 04/20/18 00:00 97.6 63 18 148/69 (95) 97 04/20/18 00:00 63 04/19/18 21:13 65 04/19/18 21:00 70 134/68 04/19/18 21:00 Room Air 04/19/18 20:58 134/68 04/19/18 20:18 66 18 Room Air 21 04/19/18 20:00 97.4 69 20 162/71 (101) 04/19/18 16:00 63 04/19/18 16:00 97.3 67 20 134/68 (90) 95 General Appearance: no apparent distress, alert Neck: supple Cardiovascular: normal rate Respiratory/Chest: lungs clear, normal breath sounds Abdomen: normal bowel sounds, non tender, soft Extremities: no swelling Intake and Output 04/19/18 04/20/18 18:59 06:59 Intake Total 720 ml Balance 720 ml Intake Oral 720 ml # Voids 3 2 # Bowel Movements 1 Laboratory Tests Test 04/20/18 06:01 White Blood Count 6.9 K/UL (4.8-10.8) Red Blood Count 4.18 M/UL (4.70-6.10) L Hemoglobin 12.0 G/DL (14.2-18.0) L Hematocrit 36.3 % (42.0-52.0) L Mean Corpuscular Volume 87 FL (80-99) Mean Corpuscular Hemoglobin 28.7 PG (27.0-31.0) Mean Corpuscular Hemoglobin Concent 33.0 G/DL (32.0-36.0) Red Cell Distribution Width 12.1 % (11.6-14.8) Platelet Count 103 K/UL (150-450) L Mean Platelet Volume 9.5 FL (6.5-10.1) Neutrophils (%) (Auto) 58.1 % (45.0-75.0) Lymphocytes (%) (Auto) 17.2 % (20.0-45.0) L Monocytes (%) (Auto) 16.7 % (1.0-10.0) H Eosinophils (%) (Auto) 7.1 % (0.0-3.0) H Basophils (%) (Auto) 1.0 % (0.0-2.0) Sodium Level 140 MMOL/L (136-145) Potassium Level 4.3 MMOL/L (3.5-5.1) Chloride Level 106 MMOL/L (98-107) Carbon Dioxide Level 28 MMOL/L (21-32) Anion Gap 6 mmol/L (5-15) Blood Urea Nitrogen 22 mg/dL (7-18) H Creatinine 1.3 MG/DL (0.55-1.30) Estimat Glomerular Filtration Rate mL/min (>60) Glucose Level 92 MG/DL (74-106) Calcium Level 8.9 MG/DL (8.5-10.1) Phosphorus Level 3.5 MG/DL (2.5-4.9) Magnesium Level 1.7 MG/DL (1.8-2.4) L Total Bilirubin 0.7 MG/DL (0.2-1.0) Aspartate Amino Transf (AST/SGOT) 18 U/L (15-37) Alanine Aminotransferase (ALT/SGPT) 13 U/L (12-78) Alkaline Phosphatase 43 U/L (46-116) L Total Protein 7.7 G/DL (6.4-8.2) Albumin 3.3 G/DL (3.4-5.0) L Globulin 4.4 g/dL Albumin/Globulin Ratio 0.8 (1.0-2.7) L Santiago Magdaleno MD Apr 20, 2018 13:19
[2018-04-20] MEDS ORDERED: COZAAR50 MG ORAL ×2 (15:23)
--- NOTE | 2018-04-20 15:24 | Internal Med Progress Note ---
Subjective Physician Name Alex Dickey Attending Physician Alex Dickey MD Current Medications Medications (Trade) Dose Ordered Sig/Flash Route PRN Reason Start Time Stop Time Status Last Admin Dose Admin Acetaminophen (Tylenol) 650 mg Q4H PRN ORAL Mild Pain/Temp > 100.5 04/19/18 02:30 05/19/18 02:29 Albuterol/ Ipratropium (Albuterol/ Ipratropium) 3 ml Q4H PRN HHN Shortness of Breath 04/19/18 02:30 04/24/18 02:29 Apixaban (Eliquis) 2.5 mg BID ORAL 04/19/18 09:00 05/19/18 08:59 04/20/18 09:21 Aspirin (ASA) 81 mg DAILY ORAL 04/20/18 09:00 05/20/18 08:59 04/20/18 09:23 Carvedilol (Coreg) 12.5 mg EVERY 12 HOURS ORAL 04/19/18 21:00 05/19/18 20:59 04/20/18 09:23 Diltiazem HCl (Cardizem) 10 mg EVERY HOUR PRN IV heart rate more than 120, 04/18/18 22:30 05/18/18 22:29 Enalaprilat (Vasotec) 2.5 mg Q6H PRN IV sbp more than 160 04/19/18 01:45 05/18/18 22:29 Losartan Potassium (Cozaar) 50 mg QHS ORAL 04/19/18 21:00 05/19/18 20:59 04/19/18 20:58 Losartan Potassium (Cozaar) 100 mg DAILY ORAL 04/19/18 09:00 05/19/18 08:59 04/20/18 09:22 Morphine Sulfate (Morphine Sulfate) 2 mg Q4H PRN IVP For Pain 04/19/18 02:30 04/26/18 02:29 Nitroglycerin (Ntg) 0.4 mg Q5M PRN SL Prn Chest Pain 04/19/18 02:30 05/19/18 02:29 Ondansetron HCl (Zofran) 4 mg Q6H PRN IVP Nausea & Vomiting 04/19/18 02:30 05/19/18 02:29 Polyethylene Glycol (Miralax) 17 gm DAILY PRN ORAL Constipation 04/19/18 02:30 05/19/18 02:29 04/19/18 21:07 Polyethylene Glycol (Miralax) 17 gm DAILY PRN ORAL Constipation 04/19/18 16:45 05/19/18 16:44 Pravastatin Sodium (Pravachol) 40 mg BEDTIME ORAL 04/19/18 21:00 05/19/18 20:59 04/19/18 20:57 Temazepam (Restoril) 15 mg HSPRN PRN ORAL Insomnia 04/19/18 02:30 04/26/18 02:29 Allergies: Coded Allergies: No Known Allergies (Unverified , 01/18/18) Subjective awake, alert, responsive, No chest pain or SOB, feeling good. Objective Last Vital Signs Date Time Temp Pulse Resp B/P (MAP) Pulse Ox O2 Delivery O2 Flow Rate FiO2 04/20/18 12:00 96.8 69 18 140/60 (86) 95 04/20/18 10:09 Room Air 21 Laboratory Tests Test 04/20/18 06:01 04/20/18 13:24 White Blood Count 6.9 K/UL (4.8-10.8) Red Blood Count 4.18 M/UL (4.70-6.10) L Hemoglobin 12.0 G/DL (14.2-18.0) L Hematocrit 36.3 % (42.0-52.0) L Mean Corpuscular Volume 87 FL (80-99) Mean Corpuscular Hemoglobin 28.7 PG (27.0-31.0) Mean Corpuscular Hemoglobin Concent 33.0 G/DL (32.0-36.0) Red Cell Distribution Width 12.1 % (11.6-14.8) Platelet Count 103 K/UL (150-450) L Mean Platelet Volume 9.5 FL (6.5-10.1) Neutrophils (%) (Auto) 58.1 % (45.0-75.0) Lymphocytes (%) (Auto) 17.2 % (20.0-45.0) L Monocytes (%) (Auto) 16.7 % (1.0-10.0) H Eosinophils (%) (Auto) 7.1 % (0.0-3.0) H Basophils (%) (Auto) 1.0 % (0.0-2.0) Sodium Level 140 MMOL/L (136-145) Potassium Level 4.3 MMOL/L (3.5-5.1) Chloride Level 106 MMOL/L (98-107) Carbon Dioxide Level 28 MMOL/L (21-32) Anion Gap 6 mmol/L (5-15) Blood Urea Nitrogen 22 mg/dL (7-18) H Creatinine 1.3 MG/DL (0.55-1.30) Estimat Glomerular Filtration Rate mL/min (>60) Glucose Level 92 MG/DL (74-106) Calcium Level 8.9 MG/DL (8.5-10.1) Phosphorus Level 3.5 MG/DL (2.5-4.9) Magnesium Level 1.7 MG/DL (1.8-2.4) L Total Bilirubin 0.7 MG/DL (0.2-1.0) Aspartate Amino Transf (AST/SGOT) 18 U/L (15-37) Alanine Aminotransferase (ALT/SGPT) 13 U/L (12-78) Alkaline Phosphatase 43 U/L (46-116) L Total Protein 7.7 G/DL (6.4-8.2) Albumin 3.3 G/DL (3.4-5.0) L Globulin 4.4 g/dL Albumin/Globulin Ratio 0.8 (1.0-2.7) L Troponin I 0.005 ng/mL (0.000-0.056) Intake and Output 04/19/18 04/20/18 19:00 07:00 Intake Total 720 ml Balance 720 ml Intake Oral 720 ml # Voids 3 2 # Bowel Movements 1 Objective GENERAL: The patient is awake and responsive, in no acute distress. HEAD AND NECK: Pupils are equal and reactive to light. Extraocular movements are intact. Neck was supple. No JVD. LUNGS: Good air entry. No wheezing or rales. HEART: S1 and S2. Distant heart sounds. Irregular. Pacemaker in the left- sided chest wall. ABDOMEN: Soft, nondistended, and nontender. Positive bowel sounds. EXTREMITIES: No cyanosis, clubbing, or edema. NEUROLOGIC: Cranial nerves II through XII are grossly intact. Motor is 5/5 in all extremities. Gait is intact. RECTAL: Refused and deferred. GENITOURINARY: Refused and deferred. PSYCHIATRIC: Mood and affect are intact. Assessment/Plan Assessment/Plan ASSESSMENT: 1. Chest pain, possibly due to elevated blood pressure; rule out acute coronary syndrome. 2. Hypertensive Emergence, 3. History of atrial fibrillation, status post flutter ablation. 4. Chronic kidney disease, stage 3. 5. Thrombocytopenia with history of ITP. 6. Dyslipidemia. 7. Congestive heart failure, chronic. 8. Coronary artery disease, status post CABG and PTCA with stent. 9. Chronic constipation PLAN: In telemetry. monitor aboratory and Monitor blood pressure closely. Discussed the case with Dr. Avila from Pulmonary Critical Care. Follow up with Cardiology, Dr. Maira Aguero Code status is Full Code. DVT prophylaxis, Eliquis. Start on Miralax PRN DC planning for Today. Alex Dickey M.D. Alex Dickey MD Apr 20, 2018 15:24
[2018-04-20 16:00] VITALS: BP 110/73
--- NOTE | 2018-04-22 12:53 | Discharge Summary ---
Discharge Summary Discharge Summary _ DATE OF ADMISSION: 04/18/2018 DATE OF DISCHARGE: 04/20/2018 DISCHARGED BY: Dr. Dickey REASON FOR ADMISSION: 87 years old male with past medical history significant for history of complete heart block, status post pacemaker placement on January 2018 at [facility] by Dr. Maira Aguero, history of chronic atrial fibrillation, chronic kidney disease stage III, coronary artery disease, congestive heart failure, history of coronary artery disease , status post CABG and stent placement, atrial flutter status post ablation in 2015, paroxysmal episodes of atrial fibrillation, multiple cardiac catheterizations dyslipidemia, hypertension, anemia, BPH, ITP , presented to the hospital complaining of chest pressure and elevated blood pressure. Patient reported that at home blood pressure was elevated with systolic blood pressure being in 170s. He contacted his primary pharmaceutical sales representative Dr. Trujillo who advised him to come to the emergency department for further evaluation. Patient subsequently called paramedics. Upon arrival blood pressure was 199/98. Laboratory workup revealed no leukocytosis ,mild anemia with hemoglobin 11.7 and hematocrit 35.3. Platelet count 96. Initial troponin negative. ECG showed ventricular paced rhythm. BUN 24 creatinine 1.3. Pro BNP 716. Patient admitted with diagnoses of chest pain, possibly due to elevated blood pressure ,however could not rule out acute coronary syndrome, hypertensive urgency, history of atrial fibrillation and flutter, status post ablation, chronic kidney disease stage III, thrombocytopenia with history of ITP, dyslipidemia, chronic congestive heart failure, coronary artery disease, status post CABG and PTCA with stent. CONSULTANTS: pharmaceutical sales representative Dr. Magdaleno pulmonary Dr. Avila psychiatrist [facility]: Patient admitted to telemetry floor. Restaurant Cook and occ med physician closely followed. Antihypertensive mediation regimen uptitrated to keep blood pressure under control. Second troponin with minimal elevation 0.063, and the next two troponin negative. EKG revealed a paced rhythm, un-interpretable otherwise . Echocardiogram revealed ejection fraction of 35-40% with mild left ventricular hypertrophy. Global left ventricular hypokinesis with anteroseptal dyskinesis. Right ventricular systolic pressure of 46 consistent with moderate pulmonary hypertension. Noted moderate aortic insufficiency with mild to moderate mitral regurgitation. Per pharmaceutical sales representative patient will need ischemia evaluation, but it would be reasonable to do it at [facility] , where his primary pharmaceutical sales representative is. Restaurant Cook, contacted Dr. Trujillo /outpatient pharmaceutical sales representative and left him a message to discuss. Blood pressure was managed with beta-munira and angiotensin receptor munira and remained stable. Lipid panel was stable. Patient was on aspirin and statin. Anti-failure regimen with beta munira and ARB continued. Anticoagulation with Eliquis was continued. Heart rate was stable with beta- munira. Isosorbide continued. Pain management addressed as needed. Platelet count was closely monitor in lieu of history of ITP and remained stable. Platelet count prior to discharge 103. Supplemental oxygen provided as needed to keep pulse oximeter above 92%. Pulmonary toilet was on standby as needed. Renal parameters and electrolytes were closely monitored. Electrolytes corrected as needed. Nephrotoxins were avoided. Noted elevated TSH. Free T4 and T3 were both within normal limits. Recommended to recheck TSH in 4 weeks. Patient was working with physical therapist and was able to ambulate with cane. Bowel regimen instituted. Patient was stable for discharge home with outpatient follow-up with pharmaceutical sales representative Dr. Trujillo. FINAL DIAGNOSES: Chest pain associated with exertional angina Hypertensive urgency -resolved Ischemic cardiomyopathy with ejection fraction 35-40% Coronary artery disease with history of CABG and PTCA Chronic CHF Dyslipidemia Chronic kidney disease 3 Paroxysmal episodes of atrial fibrillation Atrial flutter status post post ablation History of ITP Constipation Anxiety disorder DISCHARGE MEDICATIONS: See Medication Reconciliation list. DISCHARGE INSTRUCTIONS: Patient was discharged home. Outpatient follow-up with pharmaceutical sales representative Dr. Thompson. Radha oRb NP Apr 22, 2018 12:53
== END 2018-04-20 16:38 | disposition home or self-care (01) | DRG 303 ==
LOC: EDBD 20:39 → EMR 21:00 → 2E 21:56 → EDBEDREQ 04-19 00:12 → EMR 04-19 00:20
DX: I25.118 Atherosclerotic heart disease of native coronary artery with other forms of angina pectoris (principal); I13.0 Hypertensive heart and chronic kidney disease with heart failure and stage 1 through stage 4 chronic kidney disease, or unspecified chronic kidney disease; D69.3 Immune thrombocytopenic purpura; I16.0 Hypertensive urgency; I25.5 Ischemic cardiomyopathy; Z95.1 Presence of aortocoronary bypass graft; Z95.5 Presence of coronary angioplasty implant and graft; I50.9 Heart failure, unspecified; E11.22 Type 2 diabetes mellitus with diabetic chronic kidney disease; E78.5 Hyperlipidemia, unspecified; N18.3 Chronic kidney disease, stage 3 (moderate); I48.0 Paroxysmal atrial fibrillation; F41.9 Anxiety disorder, unspecified; Z95.0 Presence of cardiac pacemaker; I25.2 Old myocardial infarction; N40.0 Benign prostatic hyperplasia without lower urinary tract symptoms; G47.00 Insomnia, unspecified; Z79.01 Long term (current) use of anticoagulants; I35.1 Nonrheumatic aortic (valve) insufficiency; I34.0 Nonrheumatic mitral (valve) insufficiency; K59.09 Other constipation
CPT/HCPCS: 36415; 71045; 80053; 80061; 82550; 83735; 83880; 84100; 84439; 84443; 84481; 84484; 85007; 85025; 85610; 85730; 86140; 93005; 93306; 94664; 96374; 99285